=== PATIENT | female | born 1945 | race Caucasian/White ===

== ENCOUNTER 2022-02-08 13:01 | Outpatient (RCR) | payer OTHER, SELFPAY ==
--- NOTE | 2022-06-07 15:39 | ONC.NURNOTE ---
Reviewed with pt [facility] changes and Dr. Persaud's transition to [facility], returning to [facility] Spring 2022. Pt would like to continue care at [facility]; she is due for f/u 08/2022.
== END 2022-08-07 23:59 | disposition home or self-care (01) ==
LOC: CCIC 13:01
PROVIDERS: PCP Family Medicine; Visit Provider Internal Medicine Hematology & Oncology
DX: D05.12 Intraductal carcinoma in situ of left breast (principal); Z17.0 Estrogen receptor positive status [ER+]; Z79.810 Long term (current) use of selective estrogen receptor modulators (SERMs); M81.0 Age-related osteoporosis without current pathological fracture
CPT/HCPCS: 99212; 99214

== ENCOUNTER 2022-10-20 13:57 | Outpatient (RCR) | payer OTHER, SELFPAY | END 2023-04-18 23:59 | disposition home or self-care (01) | LOC: CCIC 13:57 | PROVIDERS: PCP Family Medicine; Visit Provider Physician Assistant | DX: D05.12 Intraductal carcinoma in situ of left breast (principal); Z17.0 Estrogen receptor positive status [ER+]; Z79.810 Long term (current) use of selective estrogen receptor modulators (SERMs); M81.0 Age-related osteoporosis without current pathological fracture; R21 Rash and other nonspecific skin eruption | CPT/HCPCS: 99212; 99214 ==

== ENCOUNTER 2022-10-31 09:15 | Outpatient (RCR) | payer OTHER, SELFPAY ==
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
== END 2023-01-19 16:35 | disposition home or self-care (01) ==
PROVIDERS: PCP Family Medicine; Visit Provider Orthopaedic Surgery
DX: M12.819 Other specific arthropathies, not elsewhere classified, unspecified shoulder (principal); Z51.89 Encounter for other specified aftercare
CPT/HCPCS: 97110; 97140; 97162

== ENCOUNTER 2023-07-24 09:50 | Outpatient (RCR) | payer OTHER, SELFPAY | END 2023-10-21 23:59 | disposition home or self-care (01) | LOC: CCIC 09:50 | PROVIDERS: PCP Family Medicine; Visit Provider Physician Assistant | DX: D05.12 Intraductal carcinoma in situ of left breast (principal); M81.0 Age-related osteoporosis without current pathological fracture; N18.4 Chronic kidney disease, stage 4 (severe); R21 Rash and other nonspecific skin eruption | CPT/HCPCS: 99212; 99214; 99215; G0463 ==

== ENCOUNTER 2023-08-15 18:44 | Emergency (ER) | payer OTHER, SELFPAY ==
[2023-08-15 19:07] VITALS: BP 130/62; PULSE 83; RESP 18; TEMP 36.8; O2SAT 98; BMI 29.2
[2023-08-15 20:30] LABS: PCR FLU A Negative PCR FLU A (Negative); PCR FLU B Negative PCR FLU B (Negative); PCR RSV Negative PCR RSV (Negative); SARS PCR* Negative SARS-CoV-2 (Negative)
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
--- NOTE | 2023-08-15 21:58 | XR_ITS ---
Patient: JANIA QUINN Facility:?[facility] RIS Patient ID:?[id number] Site Patient ID:?[id number]. Site :?[id number] Study:?XRay-Chest 2V-08/15/2023 10:42:13 PM Ordering Physician:JERRY Final Report: INDICATION: Productive cough. TECHNIQUE: Chest radiograph, 1 view. COMPARISON: None. FINDINGS: Cardiovascular/Mediastinum: Normal heart size. Mild atherosclerotic calcifications of the aortic arch. Lungs: Linear bandlike opacifications of the lung bases bilaterally, likely to represent subsegmental atelectasis and/or scarring. Compressive atelectasis of the left lung base. Increased interstitial lung markings, suggestive of mild interstitial edema. Airways: Trachea remains midline. Pleura: Small left and trace right pleural effusions. No pneumothorax. Bones: Severe degenerative changes of the bilateral glenohumeral and acromioclavicular joints. No acute osseous abnormalities. Upper abdomen: There is a small amount of air under the right hemidiaphragm, concerning for pneumoperitoneum. IMPRESSION: 1. Small pleural effusions, [id number]-qhvu-right. Mild interstitial edema. No definite focal consolidation to suggest pneumonia. 2. Small amount of air under the right hemidiaphragm, compatible with pneumoperitoneum of unknown origin. Advise follow-up CT of the abdomen and pelvis for full further evaluation. Dictated by Mannie Thornton MD @ 08/15/2023 11:00:48 PM ----- ADDENDUM ----- Findings communicated with Dr. Winchester at 23:03 on 08/15/2023. Dictated by Mannie Thornton MD @ Aug 15 2023 11:34PM Signed by:?Mannie Thornton MD @08/15/2023 11:00:48 PM (Electronic Signature)
[2023-08-15] MEDS: predniSONE 20 MG TABLET 40 MG PO (22:55)
== END 2023-08-15 23:25 | disposition home or self-care (01) ==
PROVIDERS: Emergency Provider Family Medicine; PCP Family Medicine
DX: J06.9 Acute upper respiratory infection, unspecified (principal); J90 Pleural effusion, not elsewhere classified
CPT/HCPCS: 71046; 87631; 99284; J7512

== ENCOUNTER 2023-11-13 10:32 | Emergency (ER) | payer OTHER, SELFPAY ==
--- NOTE | 2023-11-13 10:36 | CRLHL7_ITS ---
For Patients: As a result of the Cures Act, medical imaging exams and procedure reports are released immediately into your electronic medical record. You may view this report before your referring provider. If you have questions, please contact your health care provider. Indication: Fall. Technique: Two AP views of the pelvis and two views of the right hip. Comparison: None available. Findings: Osseous demineralization limits evaluation for nondisplaced fracture. No displaced fracture is seen. Mild bilateral hip osteoarthritis. No widening of the sacroiliac joints or pubic symphysis. Severe lower lumbar degenerative disc disease and facet arthropathy. Peritoneal dialysis catheter is seen in the pelvis. Impression: Osseous demineralization without displaced fracture visualized. Dictated by Becky Chairez MD @ 11/13/2023 11:29:15 AM (Electronically Signed)
--- NOTE | 2023-11-13 10:36 | CRLHL7_ITS ---
For Patients: As a result of the Century Cures Act, medical imaging exams and procedure reports are released immediately into your electronic medical record. You may view this report before your referring provider. If you have questions, please contact your health care provider. INDICATION: Fall, hit head. TECHNIQUE: CT head without contrast. COMPARISON: None. FINDINGS: CSF spaces: Within normal limits for age. Brain parenchyma and extra-axial spaces: The bill-white differentiation is normal. No sign of mass, hemorrhage, or midline shift. No extra-axial fluid collection. Cerebral atrophy. Skull base and calvarium: The visualized paranasal sinuses and mastoid air cells demonstrate no acute or significant findings. The visualized orbits are grossly unremarkable. No skull fractures. Atherosclerosis. Hyperostosis frontalis interna. Expansion and irregularity at the inferior aspect of the right maxillary sinus and right maxilla, partially included on the examination. IMPRESSION: 1. No intracranial bleed or mass effect. 2. Sclerosis and expansion of the right maxilla, partially included on the examination. This can represent a process such as fibrous dysplasia, however this is incompletely included on the examination. Suggest maxillofacial CT for further characterization. Please note that all CT scans at this facility use dose modulation, iterative reconstruction, and/or weight-based dosing when appropriate to reduce radiation dose to as low as reasonably achievable. Dictated by Ariel Ayala MD @ 11/13/2023 11:20:05 AM (Electronically Signed)
[2023-11-13 10:44] VITALS: BP 180/99; PULSE 93; RESP 16; TEMP 35.8; O2SAT 97; BMI 31.8
--- NOTE | 2023-11-13 10:56 | CRLHL7_ITS ---
For Patients: As a result of the Century Cures Act, medical imaging exams and procedure reports are released immediately into your electronic medical record. You may view this report before your referring provider. If you have questions, please contact your health care provider. Indication: Fall, pain. Technique: Two view(s) of the right knee. Comparison: None available. Findings: Anatomic alignment of the right knee prosthesis. Hardware is intact. No periprosthetic lucency or fracture is seen. No large knee joint effusion. Small superior and inferior patellar enthesophytes. Osseous demineralization. Mild prepatellar soft tissue edema. Atherosclerotic arterial calcifications. Impression: Anatomic alignment of the right knee prosthesis. No evidence of hardware complication or periprosthetic fracture. Dictated by Becky Chairez MD @ 11/13/2023 11:27:13 AM (Electronically Signed)
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
--- OUTSIDE RECORDS SUMMARY | 2023-11-13 11:15 | XMS_ITS | Clinical Summary ---
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 03/25/2019 Active cholecalciferol (Vitamin D) 1,000 unit capsuleIndications: Vitamin D deficiency Take 1 Capsule (1,000 units) by mouth once daily. 90 Capsule 3 08/09/2022 Active calcium with vitamin D3 (Os-Reggie 500+D) tablet Take 1 Tablet by mouth once daily with a meal. Active oxygen-air delivery systems (HOME OXYGEN)Indications: Incarcerated umbilical hernia Oxygen for home use. Liters per minute: 2 L/min per nasal cannula. Frequency of use: Continuous with portability.;. Length of need: 2 Months. 1 Each 06/09/2023 Active Accu-Chek Guide Glucose MeterIndications:Co ntrolled type 2 diabetes mellitus without complication, without long-term current use of insulin (HC) USE DIRECTED 1 Kit 07/06/2023 Active amLODIPine (NORVASC) 5 mg tabletIndications:H TN (hypertension) Take 2 Tablets (10 mg) by mouth once daily. 180 Tablet 1 08/02/2023 Active atorvastatin (LIPITOR) 20 mg tabletIndications:H yperlipidemia, unspecified hyperlipidemia type Take 1 Tablet (20 mg) by mouth at bedtime. 90 Tablet 3 08/02/2023 Active losartan (COZAAR) 50 mg tabletIndications:H TN (hypertension) Take 1 Tablet (50 mg) by mouth once daily. 90 Tablet 1 08/02/2023 Active potassium chloride (KLOR-CON M20) 20 mEq extended-release tablet (part/cryst)Indicat ions:Hypokalemia Take 1 Tablet (20 mEq) by mouth two times daily with meals. 180 Tablet 2 08/21/2023 Active allopurinoL (ZYLOPRIM) 300 mg tabletIndications:G out of hip, unspecified cause, unspecified chronicity, unspecified laterality TAKE 1/2 TABLET ONE TIME DAILY 45 Tablet 1 10/18/2023 Active allopurinoL (ZYLOPRIM) 300 mg tabletIndications:G out of hip, unspecified cause, unspecified chronicity, unspecified laterality TAKE 1/2 TABLET ONE TIME DAILY 45 Tablet 1 08/02/2023 Discontinue d(Reorder (E-cancel not sent)) Active Problems Problem Noted Date Diagnosed Date HTN (hypertension) 06/05/2023 Incarcerated umbilical hernia 05/03/2023 CKD (chronic kidney disease) stage 5, GFR less than 15 ml/min 02/16/2023 Hypertensive chronic kidney disease with stage 5 chronic kidney disease or end stage renal disease 02/16/2023 Ductal carcinoma in situ (DCIS) of breast 2022 Overview: left lumpectomy and xrt, no chemo Esophageal reflux 01/10/2023 Nephrotic range proteinuria 12/21/2022 Type 2 diabetes mellitus wit h stage 5 chronic kidney disease not on chronic dialysis 08/04/2022 Anemia in stage 4 chronic kidney disease 020 Ductal carcinoma in situ (DCIS) of left breast 0 11/30/2018 Controlled type 2 diabetes m ellitus without complication, without long-term current use of insulin 03/27/2018 Systolic hypertension 02/21/2014 CKD (chronic kidney disease) stage 4, GFR 15-29 ml/min 04/22/2013 Gout, unspecified 08/17/2007 Other and unspecified hyperlipidemia 08/17/2007 Other atopic dermatitis and related conditions 0 08/17/2007 Resolved Problems Problem Noted Date Diagnosed Date Resolved Date Closed nondisplaced fracture of styloid process of left radius 03/05/2021 08/04/2022 Type 2 diabetes mellitus wit h hyperglycemia, without long-term current use of insulin 08/03/2020 02/08/2021 CKD (chronic kidney disease) 04/22/2013 04/22/2013 Crohn's colitis 11/16/2011 08/04/2022 Overview: Colonoscopy 11/2011 mild inflammation repeat in 3 years Colonoscopy 03/2013 mild- moderate Crohn's colitis, worsening renal function, nephrology consult, colonoscopy in 3 years HYPERTENSION 08/17/2007 02/21/2014 Encounters Date Type Department Care Team Description 10/20/2023 Telephone [facility] [address] [place] [address] Harsha Chaudhary MD Medication Management (allopurinoL (ZYLOPRIM) 300 mg tablet) 10/18/2023 Orders Only [facility] [address] [place] [address] Harsha Chaudhary MD <No scans attached> 10/16/2023 Telephone [facility] [address] [place] [address] Harsha Chaudhary MD Refill Request (CARVEDILOL 12.5MG TAB, TORSEMIDE 20MG TAB, SEVELAMER CARB 800MG TAB) 10/13/2023 Refill [facility] [address] [place] [address] Harsha Chaudhary MD Refill Request (ALLOPURINOL 300MG TAB) 08/28/2023 Refill [facility] [address] [place] [address] Harsha Chaudhary MD Refill Request (Potassium chloride ER 10mg) 08/18/2023 Refill [facility] [address] [place] [address] Harsha Chaudhary MD Refill Request (Potassium Chloride ER 10 MEQ tablet, extended release ) 08/15/2023 Orders Only [facility] Scanner 1 scan: (1-Ord) [place], [place], 08/15/2023 from Last 3 Months Immunizations Name Administration Dates Next Due COVID-19 Vaccine Spikevax (M oderna 50mcg/0.5mL) 12YO+ [id number] Formula PF 05/03/2023 COVID-19 vaccine (Moderna 100mcg/0.5mL) PF, MDV 07/16/2020 COVID-19 vaccine (Pfizer-Bio NTech 30mcg/0.3mL) 12YO+ BIVALENT PF, MDV 08/04/2022 Hepatitis B (Adult) 08/02/2023 Influenza A (H1N1), Inactivated 04/29/2009 Influenza A (H1N1), Inactiva sarah beth (Age >=3 Years) 04/29/2009 Influenza, High-dose Inactivated 01/25/2016,02/05,01/24/2014 Influenza, IIV3 (Age 6-35 mos) 02/04/2010,2008 Influenza, IIV3 (Age >=3 years) 02/08/20 13,02/04/2010,04/29/2009,2004 Influenza, Inactivated AIIV4 (Age 65+ Years) Preserv Free 03/10/2023,02/08/2021 Influenza, Inactivated IIV3 (Age 65+ Years) Preserv Free 01/22/2019,02/20/2018,01/25/2017 Pneumococcal Conj 20-valent (Prevnar 20) 05/03/2023 Pneumococcal Poly,23-Valent (Pneumovax) 09/13/2010 Pneumococcal conj 13-Valent (Prevnar 13) 01/25/2016 Td (Age >=7 Years) 09/06/2004 Tdap 02/01/2019 Tdap, Unspecified 02/01/2019 Tuberculin (PPD) 03/22/2013 Family History Medical History Relation Name Comments Heart Disease Brother Heart Disease Father 50s. Heart Disease Mother chf Cancer-breast Sister age 55 Anesthesia Malignant Hyperthermia No Family History Blood Disease No Family History Relation Name Status Comments Brother Father Mother Sister Social History Tobacco Use Types Packs/Day Years Used Date Smoking Tobacco: Never Passive Smoke Exposure: Never Smokeless Tobacco: Never Tobacco Cessation:Counseling Given: No Alcohol Use Standard Drinks/Week Comments Yes 0 (1 standard drink = 0.6 oz pur e alcohol) 2 per year PHQ-2 Answer Date Recorded PHQ-2 TOTAL SCORE 0 05/03/2023 Social Connections Answer Date Recorded Frequency of Communication with Friends and Fami ly 0 01/10/2023 Financial Resource Strain Answer Date R ecorded Difficulty of Paying Living Expenses 3 01/10/2023 Difficulty of Paying Living Expenses Not on file 01/10/2023 Food Insecurity Answer Date Recorded Worried About Running Out of Food in the Last Ye ar 1 01/10/2023 Transportation Needs Answer Date Record ed Lack of Transportation (Medical) 1 01/10/2023 Housing Stability Answer Date Recorded Unable to Pay for Housing in the Last Year 1 01/10/2023 Sex and Gender Information Value Date Recorded Sex Assigned at Not on file Gender Identity Not on file Sexual Orientation Not on file Obstetrics History Para Term AB IAB SAB Ectopic Multiple Livin g Live Births 4 4 4 Date Outcome GA Total Labor Labor/2nd/3rd Weight Sex Type Anes PTL Gloria A1 A5 Name Clin Term Term Term Term Last Filed Vital Signs Vital Sign Reading Time Taken Comments Blood Pressure 132/70 08/02/2023 1:36 PM CDT Pulse 75 08/02/2023 1:07 PM CDT Temperature 36.4 ??C (97.5 ??F) 07/06/2023 2:14 PM CS T Respiratory Rate 14 07/06/2023 2:14 PM BUSINESS MANAGEMENT INTERN Oxygen Saturation 99% 08/02/2023 1:07 PM CDT Inhaled Oxygen Concentration - - Weight 82.7 kg (182 lb 6.4 oz) 08/02/2023 1:07 P M CDT Height 167.6 cm (5' 6) 06/22/2023 10:56 AM BUSINESS MANAGEMENT INTERN Body Mass Index 29.44 06/22/2023 10:56 AM BUSINESS MANAGEMENT INTERN Plan of Treatment Upcoming Encounters Date Type Department Care Team (Late st Contact Info) Description 11/30/2023 11:30 AM CDT Orders Only [facility] [address] [place] [address] [place], [place] 11/30/2023 11:50 AM CDT Office Visit [facility] [address] [place] [address] Harsha Chaudhary MD [address] [place] [address] Health Maintenance Due Date Last Done Comments Zoster (shingles) series for age 50+ (1 of 2) 1962 COVID-19 vaccine series (2022- season) 2023 05/03/2023, 08/04/2022, 07/20/2021, Additional history exists Influenza for age 65+ 01/07/2024 03/10/2023 , 02/08/2021, 01/22/2019, Additional history exists Medicare Wellness for age 65+ 05/03/2024, 02/08/2021, 02/20/2018, Additional history exists Depression screening for age 12+ 05/04/2024 05/04/2023, 05/03/2023, 08/05/2022, Additional history exists BMI (ht and wt on same day) for age 18+ 06/22/2024 06/22/2023, 06/01/2023, 05/30/2023, Additional history exists Tetanus booster 02/01/2029 02/01/2019, 01/07, 09/06/2004 Tdap Completed 02/01/2019, 02/01/2019 DEXA/DXA scan for age 65+ Completed 2021, 01/03/2019, 02/27/2014 Pneumococcal series for age 65+ Completed 05/03/2023, 01/25/2016, 09/13/2010 Medical Devices Implanted Type Area Railroad Firer Device Identifier Shelf Expiration Date Model / Serial / Lot [employer] Medical Flex-Neck Arc Peritoneal Dialysis Catheter Implanted:Qty: 1 on 06/05/2023 by Benjamin Wayne MD at [facility] N/A: Abdomen 09/30/2024 [id number] / / Description:[employer] Fl ex-Neck ARC Peritoneal Dialysis Catheter [employer] [id number] Implanted:Qty: 1 on 06/05/2023 by Benjamin Wayne MD at [facility] N/A: Abdomen 01/02/2025 [id number] / / [id number] Description:[employer] M[employer] 12 X12 Procedures Procedure Name Priority Date/Time Associated Diagnosis Comments SCAN-RADIOLOGY REPORT 08/15/2023 12:00 AM CDT XR DXA BONE DENSITY 2 SITES AXIAL Routine 10/18/2021 10:51 AM CDT Osteoporosis from Last 3 Months or Most Recently Relevant to Health Maintenance Results * SCAN-RADIOLOGY REPORT (08/15/2023 12:00 AM CDT) Anatomical Region Laterality Modality Other Scanner OTHER * (ABNORMAL) XR DXA BONE DENSITY 2 SITES AXIAL (10/18/2021 10:51 AM CDT) Anatomical Region Laterality Modality Spine, HIPS, HIPL, HIPR Other Impressions 10/22/2021 4:56 PM CDT Osteoporosis. RECOMMENDATIONS: The National Osteoporosis Foundation recommends pharmacologic treatment for patients with T-scores of -2.5 or less, patients with prior history of fragility fractures, or patients with 10-year probability of greater than 3% at hips or greater than 20% of suffering major osteoporotic fractures. Recommend continued optimization of calcium and vitamin D intake through dietary means and/or supplementation and regular exercise. Consider pharmacologic therapy for osteoporosis. Follow-up bone density reading in 2 years if therapy initiated to assess therapeutic efficacy. Sylvia Barajas PA-C Narrative 10/22/2021 4:56 PM CDT For Patients: Results are automatically released to your [facility] ([employer]) account once available, in compliance with federal regulations. This means that you may see your results before your provider has had a chance to review them. Please allow 2-3 business days for your provider to comment on the results. XR DXA Bone Mineral Density (BMD) EXAM LOCATION: [facility] [address] [address] PATIENT NAME: Angelina Gasca DATE OF : 1945 EXAM DATE: 10/18/2021 REQUESTING PROVIDER: Harsha Chaudhary MD GENDER AT : female HEIGHT: 5' 4.33 (08/31/2021) WEIGHT: ??195 lb (08/31/2021) MENOPAUSAL STATUS: Postmenopausal RACE/ETHNICITY: White RISK FACTORS: Aromatase Inhibitors (Arimidex, etc.), Smoking (prior) and White Race CURRENT MEDICATION FOR BONE LOSS: NONE INDICATION: Osteoporosis, unspecified osteoporosis type, unspecified pathological fracture presence ?? COMPARISON DATE(S): 2013 DXA scans are compared to prior studies for a patient only when the two (or more) studies were performed on the same scanner. It is not possible to compare data generated on one scanner to data from another because there are not standards in DXA equipment. This applies even if the two scanners are made by the same etl programmer. PROCEDURE: Dual-energy x-ray absorptiometry performed with routine technique. Reporting is completed in the form of a T-score. The T-score represents the standard deviation from peak bone mass based on young healthy adult. A Z-score is used for diagnosis in premenopausal women, and for men under the age of 50. FINDINGS: RESULT LUMBAR SPINE L1 - L3 ??BMD: 1.319 g/cm2 T-Score: + 1.1 Z-Score: + 2.1 Change from prior: ??None RESULTS FEMUR Left femoral neck BMD: 0.662 g/cm2 T-Score: - 2.7 Z-Score: - 1.1 Change from prior: ??+20.1% since 2013 Right femoral neck BMD: 0.611 g/cm2 T-Score: - 3.1 Z-Score: - 1.5 Change from prior: -5.6% since 2013 Left hip BMD: 0.625 g/cm2 T-Score: - 3.0 Z-Score: - 1.7 Change from prior: -6.4% since 2013 Right hip BMD: 0.652 g/cm2 T-Score: - 2.8 Z-Score: - 1.5 Change from prior: -13.4% since 2013 WHO criteria: Normal: T-score at or above -1 SD Osteopenia: T-score between -1.1 and -2.4 SD Osteoporosis: T-score at or below -2.5 SD ?? Harsha Chaudhary MD DEXA from Last 3 Months or Most Recently Relevant to Health Maintenance Advance Directives * Full Code (Latest Code Status on File) Date Activated Date Inactivated Comments 06/06/2023 8:04 AM 06/09/2023 7:13 PM Question Answer Comments Code Status Discussion: Reviewed Preferences * Full Code Date Activated Date Inactivated Comments 06/05/2023 6:05 AM 06/06/2023 8:03 AM Question Answer Comments Code Status Discussion: Unable to Assess Preferences, Provider to review later Care Teams Steam Power Plant Operator Relationship Specialty Start Date End Date Harsha Chaudhary MD [address] [place] [address] PCP - General Family Practice 07/15/20 Donnell Ridley MD [address] [place] [address] Gastroenterology 11/22/12 Antelmo Ward MD [address] [place] [address] Internal Medicine Internal Medicine 01/24/14
--- OUTSIDE RECORDS SUMMARY | 2023-11-13 11:15 | XMS_ITS | Clinical Summary ---
Author Organization [facility] [place] Address [address] [place] [address] Phone Care Team Providers Care Footwear Stitcher Name Role Phone Harsha Chaudhary MD Primary Care Provider [phone] Allergies Active Allergy Reactions Criticality Noted Date Comments Lisinopril Other (see comments) 04/29/2009 intolerance Medications Medication Sig Dispensed Refills Start Date End Date Status allopurinol (ZYLOPRIM) 300 MG tablet Take 0.5 tablets by mouth in the morning. 12/28/2022 Active atorvastatin (LIPITOR) 20 MG tablet Take 20 mg by mouth in the morning. 09/20/2022 Active losartan (COZAAR) 50 MG tablet Take 50 mg by mouth in the morning. 12/28/2022 Active tamoxifen (NOLVADEX) 20 MG chemo tablet Take 1 tablet by mouth 1 (one) time each day 03/25/2019 Active amLODIPine (NORVASC) 5 MG tablet Take 2 tablets (10 mg total) by mouth in the morning. 05/18/2023 Active calcium citrate (CALCITRATE) 950 (200 Ca) MG tablet Take 950 mg by mouth 1 (one) time each day Active aspirin 81 MG chewable tablet Chew 81 mg 1 (one) time each day Active simvastatin (ZOCOR) 20 MG tablet Take 20 mg by mouth every night Active Torsemide 40 MG tablet Take 40 mg by mouth 1 (one) time each day 90 tablet 3 07/13/2023 Active carvedilol (Coreg) 12.5 MG tablet Take 1 tablet (12.5 mg total) by mouth in the morning and 1 tablet (12.5 mg total) in the evening. Take with meals. 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 02/16/2023 04/19/2023 Esophageal reflux 01/10/2023 05/18/2023 Nephrotic range proteinuria 12/21/202205/08 Anemia in chronic kidney disease 03/12/2020 04/19/2023 Intraductal carcinoma in situ of left breast 05/18/2023 Overview: left lumpectomy and xrt, no chemo Type 2 diabetes mellitus wit h diabetic chronic kidney disease 03/27/2018 04/19/2023 Stage 5 chronic kidney disease 04/22/2013 1 06/20/2022 Gout 08/17/2007 05/18/2023 Encounters Date Type Department Care Team Description 11/01/2023 [facility] [address] [place] [address], [place] [address] Davide Deutsch MD 10/18/2023 Orders Only [facility] [address] [place] [address] Davide Deutsch MD 09/18/2023 Treatment [facility] [address] [place] [address] Davide Deutsch MD 09/12/2023 Orders Only [facility] [address] [place] [address] Davide Deutsch MD 08/25/2023 Orders Only [facility] [address] [place] [address] Davide Deutsch MD 08/25/2023 Treatment [facility] [address] [place] [address] Davide Deutsch MD from Last 3 Months Immunizations Name Administration Dates Next Due H1N1 All Forms 04/29/2009 H1N1 Inj 04/29/2009 Influenza (IM) Preservative Free 02/04/2010,04/08 Influenza Split High Dose Pr eservative Free IM 01/25/2016,02/19/2015,01/24/2014 Influenza Vaccine, Quadrival ent, Adjuvanted 03/10/2023,02/08/2021 Influenza, Trivalent, Adjuvanted 01/22/2019,02/05,01/25/2017 Influenza, Unspecified 02/07/2013,2009,04/29/2009,04/08 Moderna SARS-COV-2 07/16/2020 Moderna Sars-cov-2 (Covid-19 ) Vaccine, Mrna, Ki Protein 05/03/2023 PPD Test 03/22/2013 [employer] SARS-CoV-2 Bivalent 3 0 mcg/0.3 mL 08/04/2022 Pneumococcal Conjugate 13-Valent 01/25/2016 Pneumococcal Polysaccharide 09/13/2010 Pneumococcal, Unspecified 05/03/2023 Td 09/06/2004 Tdap 02/01/2019 Family History Relation Status Comments Brother Alive Father Mother Sister Alive Social History Tobacco Use Types Packs/Day Years Used Date Smoking Tobacco: Never Smokeless Tobacco: Never Tobacco Cessation:Counseling Given: Not Answered Alcohol Use Standard Drinks/Week Comments Never 0 (1 standard drink = 0.6 oz pur e alcohol) Sex and Gender Information Value Date Recorded Sex Assigned at Not on file Gender Identity Not on file Sexual Orientation Not on file Last Filed Vital Signs Vital Sign Reading Time Taken Comments Blood Pressure 160/70 07/13/2023 10:24 AM CANNERY WORKER Pulse 59 07/13/2023 10:24 AM CANNERY WORKER Temperature - - Respiratory Rate - - Oxygen Saturation 98% 07/13/2023 10:24 AM CANNERY WORKER Inhaled Oxygen Concentration - - Weight 83.5 kg (184 lb) 07/13/2023 10:24 AM CANNERY WORKER Height 167.6 cm (5' 6) 07/13/2023 10:24 AM CANNERY WORKER Body Mass Index 29.7 07/13/2023 10:24 AM CANNERY WORKER Plan of Treatment Health Maintenance Due Date Last Done Comments Hepatitis B Vaccine (1 of 5 - Risk Dialysis 4-dose series) 1965 Diabetes: Ophthalmology Exam 04/12/2023 Diabetes: Pedal Pulse Checked 04/12/2023 Diabetes: Sensory Foot Exam 04/12/2023 Diabetes: Visual Foot Exam 04/12/2023 Diabetes: Hemoglobin A1C 08/14/2023 05/15/2023 Influenza Vaccine (#1) 2024 , 02/08/2021, 01/22/2019, Additional history exists Pneumococcal Vaccine: 65+ Years Completed 05/03/2023, 01/25/2016, 09/13/2010 Procedures Procedure Name Priority Date/Time Associated Diagnosis Comments PD ADEQUACY Routine 10/18/2023 PD ADEQUACY Routine 10/18/2023 PATIENT INFORMATION Routine 10/18/2023 PATIENT INFORMATION Routine 10/18/2023 PATIENT INFORMATION Routine 10/18/2023 URINE CLEARANCE Routine 10/18/2023 SPECIAL CHEMISTRY Routine 10/18/2023 CHEMISTRY Routine 10/18/2023 HEMATOLOGY Routine 10/18/2023 IMMUNO CHEMISTRY Routine 10/18/2023 CHEMISTRY Routine 10/18/2023 PDF CHEMISTRY Routine 10/18/2023 P.E.T. CREATININE, PDF Routine 09/12/2023 P.E.T. GLUCOSE, PDF Routine 09/12/2023 P.E.T. INTERPRETATION Routine 09/12/2023 PDF CHEMISTRY Routine 09/12/2023 PD ADEQUACY Routine 09/12/2023 PATIENT INFORMATION Routine 09/12/2023 HEMATOLOGY Routine 09/12/2023 IMMUNO CHEMISTRY Routine 09/12/2023 CHEMISTRY Routine 09/12/2023 P.E.T. CREATININE, PDF Routine 09/12/2023 P.E.T. GLUCOSE, PDF Routine 09/12/2023 P.E.T. INTERPRETATION Routine 09/12/2023 TRACE ELEMENTS Routine 09/12/2023 P.E.T. CREATININE, PDF Routine 09/12/2023 P.E.T. GLUCOSE, PDF Routine 09/12/2023 P.E.T. INTERPRETATION Routine 09/12/2023 URINE CLEARANCE Routine 09/12/2023 PD ADEQUACY Routine 09/12/2023 SPECIAL CHEMISTRY Routine 09/12/2023 CHEMISTRY Routine 09/12/2023 PATIENT INFORMATION Routine 09/12/2023 PATIENT INFORMATION Routine 09/12/2023 HEMATOLOGY Routine 08/25/2023 from Last 3 Months Results * (ABNORMAL) SPECIAL CHEMISTRY (10/18/2023) Only the most recent of2 resultswithin the time period is included. Vitamin D, 25-OH, Total 25.6(L) 30.0 - 100.0 ng/mL [facility] Comment: Please Note: ??Effective May 16, 2021, the methodology for this test has changed to the [employer]ELL[employer] method 10/18/2023 10/19/2023 4:0 0 PM CDT Narrative Resulting Agency Comment Specimen source: Serum Davide Deutsch MD LAB BLOOD BANK TEST ORDERABLES Performing Organization Address City/[facility] Co de Phone Number [facility] See order comments or contact performing lab Unknown, [place] * (ABNORMAL) URINE CLEARANCE (10/18/2023) Only the most recent of2 resultswithin the time period is included. Urea Nitrogen, Urine Timed 108 mg/dL [facility] Creatinine, Urine Timed 77.6 mg/dL [facility] Urea Nitrogen, Urine 24 Hr 0.4(L) 12.0 - 20.0 g/24 hr [facility] Urea Clear, Urine Norm 1.1(L) 64.0 - 99.0 mL/min [facility] Urea Clearance, Urine 1.2(L) 64.0 - 99.0 mL/min [facility] Urea Clear, Urine Norm Wkly 12 L/wk [facility] Creatinine, 24H Ur 0.3(L) 0.5 - 1.6 g/24 hr [facility] Creatinine Clear, Urine 5.4 mL/min [facility] Creat Clear, Urine Norm 4.9(L) 77.0 - 94.0 mL/min [facility] Creat Clear, Urine Wkly 54.4 L/wk [facility] 10/18/2023 10/19/2023 2:5 9 PM CDT Narrative Resulting Agency Comment Specimen source: Urine Davide Deutsch MD LAB URINE ORDERABLES Performing Organization Address City/[facility]/ZIP Co de Phone Number [facility] See order comments or contact performing lab Unknown, [place] * PDF CHEMISTRY (10/18/2023) Only the most recent of2 resultswithin the time period is included. Urea Nitrogen, PDF Timed 17 mg/dL [facility] Comment: A reference range for this assay has not been established for body fluids. If blood results are available for this analyte, results may be interpreted in comparison to those results. Creatinine, PDF Timed Uncor 2.4 mg/dL [facility] Comment: A reference range for this assay has not been established for body fluids. If blood results are available for this analyte, results may be interpreted in comparison to those results. Creatinine, PDF Timed Cor 2.2 mg/dL [facility] Comment: Creatinine values have been corrected for glucose interference. [facility] glucose correction factor for creatinine is 0.0002. Glucose, PDF Timed 808 mg/dL [facility] Comment: A reference range for this assay has not been established for body fluids. If blood results are available for this analyte, results may be interpreted in comparison to those results. Urea Nitrogen, PDF 24 Hr 1,796.1 mg/24 hr [facility] Urea Clearance, PD Fluid 5.7 mL/min [facility] Urea Clearance, PDF Norm 5.1 mL/min [facility] Urea Clear, Tot Norm Wkly 69 L/wk [facility] Urea Clear, PDF Norm Wkly 57 L/wk [facility] Creatinine, PDF 24 Hr 232.4 mg/24 hr [facility] Creatinine Clear, PDF 4.6 mL/min [facility] Creatinine Clear, PDF Norm 4.2 mL/min [facility] Creat Clear, PDF Norm Wkly 46 L/wk [facility] Creat Clear, Tot Wkly 100 L/wk [facility] 10/18/2023 10/19/2023 1:3 8 PM CDT Narrative Resulting Agency Comment Specimen source: PD Fluid Davide Deutsch MD LAB BODY FLUIDS AND STOOLS ORDERABLES [facility] See order comments or contact performing lab Unknown, [place] * PD ADEQUACY (10/18/2023) Only the most recent of4 resultswithin the time period is included. Kt/V, Residual 0.32 [facility] Creat Clear, Urine Nor Wkly 49 L/wk [facility] 10/18/2023 10/19/2023 2:5 9 PM CDT Narrative [facility] - 10/20/2023 Unless otherwise specified, test(s) performed at: [facility], [address] [place] [address], [place] [address] FIELD CAPTAIN: Porfirio Mahoney M.D., Ph.D For any questions, please call customer service at FREQUENCY:OTHER Resulting Agency Comment Specimen source: Urine Davide Deutsch MD LAB BODY FLUIDS AND STOOLS ORDERABLES Performing Organization Address [facility] Co de Phone Number [facility] See order comments or contact performing lab Unknown, [place] * IMMUNO CHEMISTRY (10/18/2023) Only the most recent of2 resultswithin the time period is included. Pathologist [facility] Hep B Surface Ag Negative Negative [facility] 10/18/2023 10/19/2023 1:3 8 PM CDT Narrative Resulting Agency Comment Specimen source: Plasma Davide Deutsch MD LAB BLOOD ORDERABLES Performing Organization Address [facility] Co de Phone Number [facility] See order comments or contact performing lab Unknown, [place] * PATIENT INFORMATION (10/18/2023) Only the most recent of6 resultswithin the time period is included. Pathologist [facility] Urea Volume Distribution ([place]) 37.7 L [facility] 10/18/2023 10/19/2023 1:3 8 PM CDT Narrative [facility] - 10/20/2023 Unless otherwise specified, test(s) performed at: [facility], [address] [place] [address], [place] [address] FIELD CAPTAIN: Porfirio Mahoney M.D., Ph.D For any questions, please call customer service at FREQUENCY:OTHER Resulting Agency Comment Specimen source: PD Fluid Davide Deutsch MD LAB BLOOD ORDERABLES Performing Organization Address [facility]/ZIP Co de Phone Number [facility] See order comments or contact performing lab Unknown, [place] * (ABNORMAL) HEMATOLOGY (10/18/2023) Only the most recent of3 resultswithin the time period is included. Pathologist [facility] WBC 6.36 4.80 - 10.80 1000/mcL [facility] RBC 3.47(L) 4.20 - 5.40 mill/mcL [facility] Hematocrit 32.5(L) 37.0 - 47.0 % [facility] MCV 94 80 - 100 fl [facility] MCH 30.9 27.0 - 31.0 pg [facility] MCHC 33.0 30.0 - 36.0 g/dL [facility] RDW 14.4 11.5 - 14.5 % [facility] Hemoglobin 10.7(L) 12.0 - 16.0 g/dL [facility] Hemoglobin x 3 32.1(L) 36.0 - 48.0 % [facility] Platelets 211 130 - 400 1000/mcL [facility] 10/18/2023 10/19/2023 1:2 3 PM CDT Narrative [facility] - 10/19/2023 Unless otherwise specified, test(s) performed at: [facility], [address] [place] [address], [place] [address] FIELD CAPTAIN: Porfirio Mahoney M.D., Ph.D For any questions, please call customer service at FREQUENCY:MONTHLY Resulting Agency Comment Specimen source: Blood Davide Deutsch MD LAB BLOOD ORDERABLES [facility] See order comments or contact performing lab Unknown, [place] * (ABNORMAL) [facility] (10/18/2023) Only the most recent of4 resultswithin the time period is included. BUN 22(H) 6 - 19 mg/dL [facility] Creatinine 3.49(H) 0.60 - 1.30 mg/dL [facility] BUN/Creatinine Ratio 6.3(L) 10.0 - 20.0 [facility] Sodium 134(L) 136 - 145 mEq/L [facility] Potassium 4.4 3.5 - 5.1 mEq/L [facility] Chloride 98 96 - 108 mEq/L [facility] Bicarbonate (CO2) 30 20 - 31 mEq/L [facility] Calcium 8.2(L) 8.7 - 10.4 mg/dL [facility] Comment: Please note change in reference range. Corrected Calcium 9.4 8.7 - 10.4 mg/dL [facility] Comment: Corrected Calcium is not equivalent to measured Ionized Calcium. Phosphorus 3.2 2.6 - 4.5 mg/dL [facility] Calcium Phosphorus Product 26 0 - 54 [facility] Calcium Phosporus Product, Cor 30 0 - 54 [facility] Alkaline Phosphatase 68 35 - 104 U/L [facility] Albumin 2.5(L) 3.5 - 5.2 g/dL [facility] Glucose 114(H) 70 - 100 mg/dL [facility] Magnesium 1.4(L) 1.6 - 2.6 mg/dL [facility] Comment: Custom Exception Ferritin 416(H) 10 - 291 ng/mL [facility] Iron 62 30 - 160 mcg/dL [facility] UIBC 112(L) 155 - 355 mcg/dL [facility] TIBC 174(L) 185 - 515 mcg/dL [facility] Iron Saturation (TSat) 36 20 - 55 % [facility] 10/18/2023 10/19/2023 4:0 0 PM CDT Narrative [facility] - 10/19/2023 Unless otherwise specified, test(s) performed at: [facility], [address] [place] [address], [place] [address] FIELD CAPTAIN: Porfirio Mahoney M.D., Ph.D For any questions, please call customer service at FREQUENCY:MONTHLY Resulting Agency Comment Specimen source: Serum Davide Deutsch MD LAB BLOOD ORDERABLES [facility] See order comments or contact performing lab Unknown, [place] * P.E.T. INTERPRETATION (09/12/2023) Only the most recent of3 resultswithin the time period is included. D/P Ratio PET 2 Hr 0.36 [facility] D/D0 Ratio PET 2 Hr 0.64 [facility] 09/12/2023 09/14/2023 6:0 0 PM CDT Narrative [facility] - 09/14/2023 Unless otherwise specified, test(s) performed at: [facility], [address] [place] [address], [place] [address] FIELD CAPTAIN: Porfirio Mahoney M.D., Ph.D For any questions, please call customer service at FREQUENCY:MONTHLY Resulting Agency Comment Specimen source: PD Fluid Davide Deutsch MD LAB BLOOD ORDERABLES Performing Organization Address [facility] Co de Phone Number [facility] See order comments or contact performing lab Unknown, [place] * P.E.T. GLUCOSE, PDF (09/12/2023) Only the most recent of3 resultswithin the time period is included. Glucose, PDF 2 Hr 1,322 mg/dL [facility] Comment: A reference range for this assay has not been established for body fluids. If blood results are available for this analyte, results may be interpreted in comparison to those results. 09/12/2023 09/14/2023 6:0 0 PM CDT Narrative Resulting Agency Comment Specimen source: PD Fluid Davide Deutsch MD LAB BLOOD ORDERABLES Performing Organization Address [facility] de Phone Number [facility] See order comments or contact performing lab Unknown, [place] * P.E.T. CREATININE, PDF (09/12/2023) Only the most recent of3 resultswithin the time period is included. Creatinine, PDF 2 Hr Cor 2.3 mg/dL [facility] Creatinine, PDF 2 Hr Uncor 2.6 mg/dL [facility] Comment: A reference range for this assay has not been established for body fluids. If blood results are available for this analyte, results may be interpreted in comparison to those results. 09/12/2023 09/14/2023 6:0 0 PM CDT Narrative Resulting Agency Comment Specimen source: PD Fluid Davide Deutsch MD LAB BLOOD ORDERABLES Performing Organization Address City/[facility] Co de Phone Number [facility] See order comments or contact performing lab Unknown, [place] * TRACE ELEMENTS (09/12/2023) Aluminum <5 0 - 10 mcg/L [facility] Comment: This test was developed and its performance characteristics determined by [facility]. It has not been cleared or approved by the FDA. The laboratory is regulated under CLIA as qualified to perform high complexity testing. This test is used for clinical purposes. It should not be regarded as investigational or for research. 09/12/2023 09/14/2023 8:5 3 AM CDT Narrative [facility] - 09/14/2023 Unless otherwise specified, test(s) performed at: [facility], [address] [place] [address], [place] [address] FIELD CAPTAIN: Porfirio Mahoney M.D., Ph.D For any questions, please call customer service at FREQUENCY:MONTHLY Resulting Agency Comment Specimen source: Serum Davide Deutsch MD LAB BLOOD ORDERABLES [facility] See order comments or contact performing lab Unknown, [place] from Last 3 Months Care Teams Footwear Stitcher Relationship Specialty Start Date End Date Harsha Chaudhary MD [address] [place] [address] PCP - General Family Medicine 12/22/22
--- OUTSIDE RECORDS SUMMARY | 2023-11-13 11:15 | XMS_ITS | Encounter Summary ---
Author Organization [facility] Address [address] [place] [address] Care Team Providers Care Sawmill Moulder Operator Name Role Phone Harsha Chaudhary MD Primary Care Provider [phone] Encounter Details Date Type Department Care Team (Late st Contact Info) Description 11/01/2023 Treatment [facility] [address] [place] [address] Davide Deutsch MD [address] [place] [address] Social History Tobacco Use Types Packs/Day Years Used Date Smoking Tobacco: Never Smokeless Tobacco: Never Alcohol Use Standard Drinks/Week Comments Never 0 (1 standard drink = 0.6 oz pur e alcohol) Sex and Gender Information Value Date Recorded Sex Assigned at Not on file Gender Identity Not on file Sexual Orientation Not on file documented as of this encounter Miscellaneous Notes * Dialysis Note - Davide Deutsch MD - 11/01/2023 1:18 PM CDT Date: Nov 01, 2023 Patient Name: Angelina Gasca : 1945 Chart #: [id number] Sex: F This patient was personally seen for a complete visit as part of routine monthly dialysis care. A review of the dialysis treatment, blood pressure, estimated dry weight, and recent lab values was made. These were discussed with the patient and staff as necessary. CART PUSHER: Davide Deutsch MD LOCATION: [phone] SCHEDULE: No Routine Schedule Subjective 6/26/24: She is doing well on cycler. She is adequate. Last fill going well, ok having fluid in during day. UF volumes reviewed, variable but overall doing well and stable weight for the most part. Weight is up today, she is unsure why, no major change in diet. Her albumin dropped significantly, but her appetite has now improved significantly and she is eating better. She is not eating protein inbreakfast or lunch meals, however. Review of Systems None reported. 08/24: She is on CAPD right now, will start CCPD training September 11 as she would like to do cycler. She is doing 3 CAPD sessions per day, dwelling 3hrs, UF is about zero to 300 mL each time. She is onlytaking torsemide 20mg as she urinates a lot if she takes 40mg. But she is 9 lbs above dry weight and has 1-2+ edema in legs. PD site excellent. She has no CP or SOB. All fluid is clear. Exam Respiratory - Clear to auscultation bilaterally. nl effort Cardiovascular - Regular rate. Regular rhythm. Gastrointestinal - Normal bowel sounds, soft, non-tender. Edema - 1+ leg edema. b/l PD catheter exit site - PD incision clean and without erythema Medication List Medication Sig Start Date allopurinol 300 mg tablet Take 1/2 tablet by mouth every morning calcitriol 0.25 mcg capsule Take 1 capsule by mouth once a day as directed 09/18/2023 calcium citrate 200 mg (950 mg) tablet Take 1 tablet by mouth once a day Coreg (carvedilol) 12.5 mg tablet Take 1 tablet by mouth twice a day losartan 50 mg tablet Take 1 tablet by mouth every morning RenaPlex-D (vit b,o-br-ulmr-selen-vit d3-e) 800 mcg-12.5 mg-2,000 unit tablet Take 1 tablet by mouth once a day 09/18/2023 Renvela (sevelamer carbonate) 800 mg tablet Take 1 tablet by mouth three times a day. with breakfast, lunch, and dinner for high phosphorus. 07/19/2023 simvastatin 20 mg tablet Take 1 tablet by mouth once a day Soaanz (torsemide) 40 mg tablet Take 40 mg by mouth once a day tamoxifen 20 mg tablet Take 1 tablet by mouth once a day Allergy List Allergen Reaction Reaction Severity Onset Date LISINOPRIL Unknown~Unknown Medications reviewed and no changes were made. Treatment and Adequacy Assessment BUN mg/dL 22 (10/18/23) 37 (09/12/23) 65 (08/11/23) CREATININE (MG/DL) IN SER/PLAS mg/dL 3.49 (10/18/23) 6.32 (09/12/23) 4.86 (08/11/23) KT/V, PERITONEAL L/wk 1.51 (10/18/23) 1.42 (09/12/23) KT/V, RESIDUAL L/wk 0.32 (10/18/23) 0.16 (09/12/23) Kt/V is adequate. PET low average transport for glucose, average for Cr, error with solute transport status unfortunately Cycler with 4 exchanges of 2.5L and last fill of 2.2L. Using all 2.5% at this time. Peritoneal Dialysis Access Assessment Placed on: May 2023 Surgeon - Matilde Mosley She had hernia repair and lap-placement of PD catheter at same time with 6 weeks healing time before PD. Healed nicely now Anemia Assessment HEMOGLOBIN (G/DL) IN BLOOD g/dL 10.7 (10/18/23) 10.6 (09/12/23) 9.0 (08/25/23) PLATELETS 1000/mcL 211 (10/18/23) 202 (09/12/23) 171 (08/25/23) WBC (BLOOD) 1000/mcL 6.36 (10/18/23) 5.96 (09/12/23) 8.34 (08/25/23) FERRITIN ng/mL 416 (10/18/23) 341 (09/12/23) 402 (07/17/23) TRANSFERRIN SAT% % 36 (10/18/23) 20 (09/12/23) 15 (08/11/23) 23 (07/17/23) Hemoglobin is at goal. Iron Saturation is at goal. Ferritin is at goal. Will adjust DAGOBERTO and intravenous iron. Nutritional and Metabolic Assessment ALBUMIN (G/DL) g/dL 2.5 (10/18/23) 3.1 (09/12/23) 3.6 (08/11/23) BICARBONATE (CO2) mEq/L 30 (10/18/23) 30 (09/12/23) 23 (08/11/23) POTASSIUM (MMOL/L) IN SER/PLAS mEq/L 4.4 (10/18/23) 4.7 (09/12/23) 5.0 (08/11/23) Sodium mEq/L 134 (10/18/23) 135 (09/12/23) 143 (08/11/23) 25 OH VITAMIN D ng/mL 25.6 (10/18/23) 27.5 (09/12/23) 29.5 (07/17/23) Albumin is below goal. Encourage high biological value protein intake. Oral nutritional supplement program. Potassium is at goal. On supplement. Discussed in detail need for high protein diet, protein with every meal, RD also meeting with her today to discuss high protein diet. Will trend. Bone and Mineral Metabolism Assessment CALCIUM mg/dL 8.2 (10/18/23) 7.7 (09/12/23) 9.0 (08/11/23) CALCIUM (MG/DL) CORRECTED FOR ALBUMIN IN SER/PLAS mg/dL 9.4 (10/18/23) 8.4 (09/12/23) 9.3 (08/11/23) CALCIUM PHOSPHORUS PRODUCT, COR 30 (10/18/23) 41 (09/12/23) 44 (08/11/23) PHOSPHATE (MG/DL) IN SER/PLAS mg/dL 3.2 (10/18/23) 4.9 (09/12/23) 4.7 (08/11/23) IPTH pg/mL 65 (10/18/23) 592 (09/12/23) 308 (07/17/23) Corrected calcium is at goal. Phosphorus is at goal. Intact PTH is below goal. Renvela to continue Hold calcitriol Cardiovascular Assessment Blood pressure reviewed and is acceptable. Continue same cardiovascular medications. Estimated dry weight is appropriate. Now euvolemic. Transplant Status Patient is not a candidate. Age and co-morbid conditions Resuscitation Status Additional Comments: Doing well on CCPD Continue current prescription If weight rises further, may need occasional 4.25% but has not yet and most days weight at goal Increase protein in diet, continue protein supplement. Her appetite has now improved Davide Duetsch MD [ Signed And locked electronically On 11/01/2023 at 01:22:54 PM ] Transcribed: Davide Deutsch ( 11/01/2023 ) documented in this encounter Plan of Treatment Not on file documented as of this encounter Visit Diagnoses Not on filedocumented in this encounter Care Teams Sawmill Moulder Operator Relationship Specialty Start Date End Date Harsha Chaudhary MD [address] [place] [address] PCP - General Family Medicine 12/22/22 documented as of this encounter
--- OUTSIDE RECORDS SUMMARY | 2023-11-13 11:15 | XMS_ITS | Encounter Summary ---
Author Organization [facility] Address [address] [place] [address] Care Team Providers Care Pizza [employer] Team Member Name Role Phone Harsha Chaudhary MD Primary Care Provider [phone] Encounter Details Date Type Department Care Team (Late st Contact Info) Description 10/18/2023 Orders Only [facility] [address] [place] [address] Davide Deutsch MD [address] [place] [address] Social History Tobacco Use Types Packs/Day Years Used Date Smoking Tobacco: Never Smokeless Tobacco: Never Alcohol Use Standard Drinks/Week Comments Never 0 (1 standard drink = 0.6 oz pur e alcohol) Sex and Gender Information Value Date Recorded Sex Assigned at Not on file Gender Identity Not on file Sexual Orientation Not on file documented as of this encounter Plan of Treatment Not on file documented as of this encounter Procedures Procedure Name Priority Date/Time Associated Diagnosis Comments SPECIAL CHEMISTRY Routine 10/18/2023 URINE CLEARANCE Routine 10/18/2023 PDF CHEMISTRY Routine 10/18/2023 PD ADEQUACY Routine 10/18/2023 PD ADEQUACY Routine 10/18/2023 IMMUNO CHEMISTRY Routine 10/18/2023 PATIENT INFORMATION Routine 10/18/2023 PATIENT INFORMATION Routine 10/18/2023 PATIENT INFORMATION Routine 10/18/2023 HEMATOLOGY Routine 10/18/2023 CHEMISTRY Routine 10/18/2023 CHEMISTRY Routine 10/18/2023 documented in this encounter Results * PD ADEQUACY (10/18/2023) Kt/V, Residual 0.32 [facility] Creat Clear, Urine Nor Wkly 49 L/wk [facility] 10/18/2023 10/19/2023 2:5 9 PM CDT Narrative [facility] - 10/20/2023 Unless otherwise specified, test(s) performed at: [facility], [address] [place] [address], [place] [address] MANAGER OF [employer] SERVICES: Porfirio Mahoney M.D., Ph.D For any questions, please call customer service at FREQUENCY:OTHER Resulting Agency Comment Specimen source: Urine Davide Deutsch MD LAB BODY FLUIDS AND STOOLS ORDERABLES [facility] See order comments or contact performing lab Unknown, [place] * PD ADEQUACY (10/18/2023) Kt/V, Total 1.83 [facility] Comment: KDOQI Guidelines recommend weekly Kt/V of >=1.7 for adults. Kt/V, Peritoneal 1.51 [facility] Creat Clear, Tot Norm Wkly 91 L/wk [facility] Creat Clear, PDF Norm Wkly 42 L/wk [facility] PNA, Normalized 0.49 g/kg/day [facility] PNA 32 g/day [facility] 10/18/2023 10/19/2023 1:3 8 PM CDT Narrative Resulting Agency Comment Specimen source: PD Fluid Davide Deutsch MD LAB BODY FLUIDS AND STOOLS ORDERABLES Performing Organization Address [facility] de Phone Number [facility] See order comments or contact performing lab Unknown, [place] * PATIENT INFORMATION (10/18/2023) Pathologist [facility] Urea Volume Distribution (Carmela) 37.7 L [facility] 10/18/2023 10/19/2023 1:3 8 PM CDT Narrative [facility] - 10/20/2023 Unless otherwise specified, test(s) performed at: [facility], [address] [place] [address], [place] [address] MANAGER OF [employer] SERVICES: Porfirio Mahoney M.D., Ph.D For any questions, please call customer service at FREQUENCY:OTHER Resulting Agency Comment Specimen source: PD Fluid Davide Deutsch MD LAB BLOOD ORDERABLES Performing Organization Address [facility] de Phone Number [facility] See order comments or contact performing lab Unknown, [place] * PATIENT INFORMATION (10/18/2023) [facility] Patient BSA 1.92 sq. M. [facility] Comment: Normalized values are calculated using the patient's actual BSA and normalized to the average BSA of 1.73m2. 10/18/2023 10/19/2023 4:0 0 PM CDT Narrative [facility] - 10/20/2023 Unless otherwise specified, test(s) performed at: [facility], [address] [place] [address], [place] [address] MANAGER OF ALL[employer] HE[employer] SERVICES: Porfirio Mahoney M.D., Ph.D For any questions, please call customer service at FREQUENCY:OTHER Resulting Agency Comment Specimen source: PD Fluid Davide Deutsch MD LAB BLOOD ORDERABLES Performing Organization Address [facility] de Phone Number [facility] See order comments or contact performing lab Unknown, [place] * PATIENT INFORMATION (10/18/2023) Pathologist [facility] Patient Weight 82.0 [facility] Patient Height 168.0 [facility] Drain volume, PDF 10,565 [facility] Collection Time, PDF 24.0 [facility] Urine Volume 350 [facility] Collection Interval, Ur 24.0 [facility] 10/18/2023 10/18/2023 Narrative [facility] - 10/20/2023 Unless otherwise specified, test(s) performed at: [facility], [address] [place] [address], [place] [address] MANAGER OF [employer]: Porfirio Mahoney M.D., Ph.D For any questions, please call customer service at FREQUENCY:OTHER Resulting Agency Comment Specimen source: PD Fluid Davide Deutsch MD LAB BLOOD ORDERABLES Performing Organization Address City/[facility]/ZIP Co de Phone Number [facility] See order comments or contact performing lab Unknown, [place] * (ABNORMAL) URINE CLEARANCE (10/18/2023) Urea Nitrogen, Urine Timed 108 mg/dL [facility] [...] Urine Davide Deutsch MD LAB URINE ORDERABLES [facility] See order comments or contact performing lab Unknown, [place] * (ABNORMAL) SPECIAL CHEMISTRY (10/18/2023) Pathologist [facility] Vitamin D, 25-OH, Total 25.6(L) 30.0 - 100.0 ng/mL [facility] Comment: Please Note: ??Effective May 16, 2021, the methodology for this test has changed to the SIEMENS ATELLICA method 10/18/2023 10/19/2023 4:0 0 PM CDT Narrative Resulting Agency Comment Specimen source: Serum Davide Deutsch MD LAB BLOOD BANK TEST ORDERABLES [facility] See order comments or contact performing lab Unknown, [place] * (ABNORMAL) [facility] Chemistry (10/18/2023) Pathologist [facility] BUN 22(H) 6 - 19 mg/dL [facility] [...] 10/18/2023 10/19/2023 4:0 0 PM CDT Narrative [facility] - 10/19/2023 Unless otherwise specified, test(s) performed at: [facility], [address] [place] [address], [place] [address] MANAGER OF [employer]: Porfirio Mahoney M.D., Ph.D For any questions, please call customer service at FREQUENCY:MONTHLY Resulting Agency Comment Specimen source: Serum Davide Deutsch MD LAB BLOOD ORDERABLES [facility] See order comments or contact performing lab Unknown, [place] * (ABNORMAL) HEMATOLOGY (10/18/2023) WBC 6.36 4.80 - 10.80 1000/mcL [facility] [...] 10/18/2023 10/19/2023 1:2 3 PM CDT Narrative [facility] - 10/19/2023 Unless otherwise specified, test(s) performed at: [facility], [address] [place] [address], [place] [address] MANAGER OF ALL[employer] SERVICES: Porfirio Mahoney M.D., Ph.D For any questions, please call customer service at FREQUENCY:MONTHLY Resulting Agency Comment Specimen source: Blood Davide Deutsch MD LAB BLOOD ORDERABLES [facility] See order comments or contact performing lab Unknown, [place] * IMMUNO CHEMISTRY (10/18/2023) Pathologist [facility] Hep B Surface Ag Negative Negative [facility] 10/18/2023 10/19/2023 1:3 8 PM CDT Narrative Resulting Agency Comment Specimen source: Plasma Davide Deutsch MD LAB BLOOD ORDERABLES Performing Organization Address [facility] Co de Phone Number [facility] See order comments or contact performing lab Unknown, [place] * [facility] Chemistry (10/18/2023) Pathologist [facility] PTH 65 16 - 80 pg/mL [facility] 10/18/2023 10/19/2023 1:3 8 PM CDT Narrative [facility] - 10/19/2023 Unless otherwise specified, test(s) performed at: [facility], [address] [place] [address], [place] [address] MANAGER OF [employer] SERVICES: Porfirio Mahoney M.D., Ph.D For any questions, please call customer service at FREQUENCY:MONTHLY Resulting Agency Comment Specimen source: Plasma Davide Deutsch MD LAB BLOOD ORDERABLES Performing Organization Address [facility] de Phone Number [facility] See order comments or contact performing lab Unknown, [place] * PDF CHEMISTRY (10/18/2023) [facility] Urea Nitrogen, PDF Timed 17 mg/dL [facility] [...] results. Creatinine, PDF Timed Cor 2.2 mg/dL [facility] Comment: Creatinine values have been corrected for glucose interference. [facility] glucose correction factor for creatinine is 0.0002. Glucose, PDF Timed 808 mg/dL [facility] Comment: A reference range for this [...] MD LAB BODY FLUIDS AND STOOLS ORDERABLES [facility] See order comments or contact performing lab Unknown, [place] documented in this encounter Visit Diagnoses Not on filedocumented in this encounter Care Teams [employer] Team Member Relationship Specialty Start Date End Date Harsha Chaudhary MD [address] [place] [address] PCP - General Family Medicine 12/22/22 documented as of this encounter
--- OUTSIDE RECORDS SUMMARY | 2023-11-13 11:15 | XMS_ITS | Encounter Summary ---
Author Organization [facility] Address [address] [place] [address] Care Team Providers Care Groundskeeper Porter Name Role Phone Harsha Chaudhary MD Primary Care Provider [phone] Encounter Details Date Type Department Care Team (Late st Contact Info) Description 09/18/2023 Treatment [facility] [place] [address] [place] [address] Davide Deutsch MD [address] [place] [address] Social History Tobacco Use Types [...] Dialysis Note - Davide Deutsch MD - 09/18/2023 3:18 PM CDT Date: September 18, 2023 Patient Name: Angelina Gasca : 1945 Chart #: [id number] Sex: F This patient was personally seen for a complete visit as part of routine monthly dialysis care. A review of the dialysis treatment, blood pressure, estimated dry weight, and recent lab values was made. These were discussed with the patient and staff as necessary. FUEL CELL REPAIRER: Davide Deutsch MD LOCATION: [phone] SCHEDULE: No Routine Schedule Subjective 5/13/24: Her BP is soft. Her edema is nearly resolved. She is training on cycler but still doing CAPD and this is going well. UF 800 mL on average per day with 6L of fluid in 3 exchanges with all 2.5%. Low Avg glucose transport, avg Cr transport, error with solute on PET test. Ca is lower, increased calcitriol today. She has ok appetite, discussed higher protein intake today. Review of Systems None reported. 08/24: She [...] Exam Respiratory - Clear to auscultation bilaterally. Cardiovascular - Regular rate. Regular rhythm. Gastrointestinal - Normal bowel sounds, soft, non-tender. Edema - Trace edema. much improved PD catheter exit site - PD incision site slightly pink but stable Medication List Medication Sig Start Date allopurinol 300 mg tablet Take 1/2 tablet by mouth every morning amlodipine 5 mg tablet Take 2 tablet by mouth every morning calcium citrate 200 mg (950 mg) tablet Take 1 tablet by mouth once a day Coreg (carvedilol) 12.5 mg tablet Take 1 tablet by mouth twice a day losartan 50 mg tablet Take 1 tablet by mouth every morning Renvela (sevelamer carbonate) 800 mg tablet Take 1 tablet by mouth three times a day. with breakfast, lunch, and dinner for high phosphorus. 07/19/2023 simvastatin 20 mg tablet Take 1 tablet by mouth once a day tamoxifen 20 mg tablet Take 1 tablet by mouth once a day torsemide 40 mg tablet Take 40 mg by mouth once a day Allergy List Allergen Reaction Reaction Severity Onset Date LISINOPRIL Unknown~Unknown Medications reviewed and no changes were made. Treatment and Adequacy Assessment BUN mg/dL 37 (09/12/23) 65 (08/11/23) 62 (07/17/23) CREATININE (MG/DL) IN SER/PLAS mg/dL 6.32 (09/12/23) 4.86 (08/11/23) 4.22 (07/17/23) KT/V, PERITONEAL L/wk 1.42 (09/12/23) KT/V, RESIDUAL L/wk 0.16 (09/12/23) Kt/V is not adequate. PET low average transport for glucose, average for Cr, error with solute transport status unfortunately Will start cycler with 4 exchanges of 2.5L and last fill of 2L and half/half 1.5/2.5% to start Peritoneal Dialysis Access Assessment Placed on: May 2023 Surgeon - Matilde Mosley She had hernia repair and lap-placement of PD catheter at same time with 6 weeks healing time before PD. Healed nicely now Anemia Assessment HEMOGLOBIN (G/DL) IN BLOOD g/dL 10.6 (09/12/23) 9.0 (08/25/23) 8.4 (08/11/23) PLATELETS 1000/mcL 202 (09/12/23) 171 (08/25/23) 185 (07/17/23) WBC (BLOOD) 1000/mcL 5.96 (09/12/23) 8.34 (08/25/23) 6.97 (07/17/23) FERRITIN ng/mL 341 (09/12/23) 402 (07/17/23) TRANSFERRIN SAT% % 20 (09/12/23) 15 (08/11/23) 23 (07/17/23) Hemoglobin is at goal. Iron Saturation is below goal. Ferritin is at goal. Will adjust DAGOBERTO and intravenous iron. Nutritional and Metabolic Assessment ALBUMIN (G/DL) g/dL 3.1 (09/12/23) 3.6 (08/11/23) 3.5 (07/17/23) BICARBONATE (CO2) mEq/L 30 (09/12/23) 23 (08/11/23) 25 (07/17/23) POTASSIUM (MMOL/L) IN SER/PLAS mEq/L 4.7 (09/12/23) 5.0 (08/11/23) 4.6 (07/17/23) Sodium mEq/L 135 (09/12/23) 143 (08/11/23) 142 (07/17/23) 25 OH VITAMIN D ng/mL 27.5 (09/12/23) 29.5 (07/17/23) Albumin is below goal. Encourage high biological value protein intake. Oral nutritional supplement program. Potassium is at goal. Starting liquicel in addition to protein bars and high protein diet already in place Bone and Mineral Metabolism Assessment CALCIUM mg/dL 7.7 (09/12/23) 9.0 (08/11/23) 8.4 (07/17/23) CALCIUM (MG/DL) CORRECTED FOR ALBUMIN IN SER/PLAS mg/dL 8.4 (09/12/23) 9.3 (08/11/23) 8.8 (07/17/23) CALCIUM PHOSPHORUS PRODUCT, COR 41 (09/12/23) 44 (08/11/23) 50 (07/17/23) PHOSPHATE (MG/DL) IN SER/PLAS mg/dL 4.9 (09/12/23) 4.7 (08/11/23) 5.7 (07/17/23) IPTH pg/mL 592 (09/12/23) 308 (07/17/23) Corrected calcium is below goal. Phosphorus is at goal. Intact PTH is at goal. Renvela to continue Calcitriol increase to 0.25 mcg/day (from tiw) Cardiovascular Assessment Blood pressure reviewed and is not at goal, see below. Continue same cardiovascular medications. Estimated dry weight is appropriate. More euvolemic now Stop amlodipine Transplant Status Patient is not a candidate. Age and co-morbid conditions Resuscitation Status Additional Comments: Doing well on CAPD Transitioning to CCPD per preference Increase prescription as not adequate and low residual function Stop amlodipine Increase protein intake as above Monitor closely with transition to cycler Davide Deutsch MD [ Signed And locked electronically On 09/18/2023 at 03:22:29 PM ] Transcribed: Davide Deutsch ( 09/18/2023 ) documented in this encounter Plan of Treatment Not on file documented as of this encounter Visit Diagnoses Not on filedocumented in this encounter Care Teams Groundskeeper Porter Relationship Specialty Start Date End Date Harsha Chaudhary MD [address] [place] [address] PCP - General Family Medicine 12/22/22 documented as of this encounter
--- OUTSIDE RECORDS SUMMARY | 2023-11-13 11:16 | XMS_ITS | Encounter Summary ---
Author Organization [facility] [place] Address [address] [place] [address] Care Team Providers Care Mobile Health Vehicle Operator Name Role Phone Harsha Chaudhary MD Primary Care Provider [phone] Encounter Details Date Type Department Care Team (Late st Contact Info) Description 08/25/2023 Orders Only [facility] [place] [address] [place] [address] Davide Deutsch MD [address] [place] [address] Social History Tobacco Use Types [...] Procedure Name Priority Date/Time Associated Diagnosis Comments HEMATOLOGY Routine 08/25/2023 documented in this encounter Results * (ABNORMAL) HEMATOLOGY (08/25/2023) Neutrophils 65.7 40.0 - 75.0 % [facility] Lymphocytes Relative 20.3 19.0 - 48.0 % [facility] Monocytes 6.4 3.0 - 10.0 % [facility] Eosinophils Relative 5.9 0.0 - 7.0 % [facility] Basophils Relative 0.5 0.0 - 1.5 % [facility] FABRIZIO 1.2 0.0 - 4.0 % [facility] WBC 8.34 4.80 - 10.80 1000/mcL [facility] RBC 3.00(L) 4.20 - 5.40 mill/mcL [facility] Hematocrit 28.8(L) 37.0 - 47.0 % [facility] MCV 96 80 - 100 fl [facility] MCH 30.2 27.0 - 31.0 pg [facility] MCHC 31.4 30.0 - 36.0 g/dL [facility] RDW 15.5(H) 11.5 - 14.5 % [facility] Hemoglobin 9.0(L) 12.0 - 16.0 g/dL [facility] Hemoglobin x 3 27.0(L) 36.0 - 48.0 % [facility] Platelets 171 130 - 400 1000/mcL [facility] 08/25/2023 08/26/2023 7:1 8 AM CDT Narrative [facility] - 08/26/2023 Unless otherwise specified, test(s) performed at: [facility], [address] [place] [address], [place] [address] RADIOLOGIST: Porfirio Mahoney M.D., Ph.D For any questions, please call [employer] service at FREQUENCY:OTHER Resulting Agency Comment Specimen source: Blood Davide Deutsch MD LAB BLOOD ORDERABLES Performing Organization Address [facility]/State/ZIP Co de Phone Number [facility] See order comments or contact performing lab Unknown, [place] documented in this encounter Visit Diagnoses Not on filedocumented in this encounter Care Teams Mobile Health Vehicle Operator Relationship Specialty Start Date End Date Harsha Chaudhary MD [address] [place] [address] PCP - General Family Medicine 12/22/22 documented as of this encounter
--- OUTSIDE RECORDS SUMMARY | 2023-11-13 11:16 | XMS_ITS | Encounter Summary ---
Author Organization [facility] Address [address] [place] [address] Care Team Providers Care Cat Scan Tech Name Role Phone Harsha Chaudhary MD Primary Care Provider [phone] Encounter Details Date Type Department Care Team (Late st Contact Info) Description 08/25/2023 Treatment [facility] [address] [place] [address] Davide Deutsch MD [address] [facility] [place] [address] Social History Tobacco Use Types [...] Dialysis Note - Davide Deutsch MD - 08/25/2023 2:17 PM CDT Date: Aug 25, 2023 Patient Name: Angelina Gasca : 1945 Chart #: [id number] Sex: F This patient was personally seen for a complete visit as part of routine monthly dialysis care. A review of the dialysis treatment, blood pressure, estimated dry weight, and recent lab values was made. These were discussed with the patient and staff as necessary. TECHNICAL SERVICE REP: Davide Deutsch MD LOCATION: [phone] SCHEDULE: No Routine Schedule Subjective 4/19: She is on CAPD right now, will [...] CP or SOB. All fluid is clear. Review of Systems None reported. Exam Respiratory - Clear to auscultation bilaterally. Cardiovascular - Regular rate. Regular rhythm. Gastrointestinal - Normal bowel sounds, soft, non-tender. Edema - 2+ leg edema. PD catheter exit site - incision healed, PD insertion site slightly pink around site only Medication List Medication Sig Start Date allopurinol 300 mg tablet Take 1/2 tablet by mouth every morning amlodipine 5 mg tablet Take 2 tablet by mouth every morning atenolol 50 mg tablet Take 1 tablet by mouth twice a day calcitriol 0.25 mcg capsule Take 1 capsule by mouth three times a week. Mon.Wed. Mon. 07/19/2023 hydrochlorothiazide 50 mg tablet Take 1 tablet by mouth once a day losartan 50 mg tablet Take 1 tablet by mouth every morning Renvela (sevelamer carbonate) 800 mg tablet Take 1 tablet by mouth three times a day. with breakfast, lunch, and dinner for high phosphorus. 07/19/2023 tamoxifen 20 mg tablet Take 1 tablet by mouth once a day Allergy List Allergen Reaction Reaction Severity Onset Date LISINOPRIL Unknown~Unknown Medications reviewed and no changes were made. Treatment and Adequacy Assessment BUN mg/dL 65 (08/11/23) 62 (07/17/23) CREATININE (MG/DL) IN SER/PLAS mg/dL 4.86 (08/11/23) 4.22 (07/17/23) PET and adequacy are to be done 09/12/23 Peritoneal Dialysis Access Assessment Placed on: May 2023 Surgeon - Matilde Mosley She had hernia repair and lap-placement of PD catheter at same time with 6 weeks healing time before PD. Healed nicely now Anemia Assessment HEMOGLOBIN (G/DL) IN BLOOD g/dL 8.4 (08/11/23) 9.3 (07/17/23) PLATELETS 1000/mcL 185 (07/17/23) WBC (BLOOD) 1000/mcL 6.97 (07/17/23) FERRITIN ng/mL 402 (07/17/23) TRANSFERRIN SAT% % 15 (08/11/23) 23 (07/17/23) Hemoglobin is below goal. Iron Saturation is below goal. Ferritin is below goal. Will adjust DAGOBERTO and intravenous iron. Giving IV iron today and Mircera 150 mcg Hgb also likely a little diluted as she is fluid up Nutritional and Metabolic Assessment ALBUMIN (G/DL) g/dL 3.6 (08/11/23) 3.5 (07/17/23) BICARBONATE (CO2) mEq/L 23 (08/11/23) 25 (07/17/23) POTASSIUM (MMOL/L) IN SER/PLAS mEq/L 5.0 (08/11/23) 4.6 (07/17/23) Sodium mEq/L 143 (08/11/23) 142 (07/17/23) 25 OH VITAMIN D ng/mL 29.5 (07/17/23) Albumin is below goal. Encourage high biological value protein intake. Potassium is at goal. Bone and Mineral Metabolism Assessment CALCIUM mg/dL 9.0 (08/11/23) 8.4 (07/17/23) CALCIUM (MG/DL) CORRECTED FOR ALBUMIN IN SER/PLAS mg/dL 9.3 (08/11/23) 8.8 (07/17/23) CALCIUM PHOSPHORUS PRODUCT, COR 44 (08/11/23) 50 (07/17/23) PHOSPHATE (MG/DL) IN SER/PLAS mg/dL 4.7 (08/11/23) 5.7 (07/17/23) IPTH pg/mL 308 (07/17/23) Corrected calcium is at goal. Phosphorus is at goal. Intact PTH is at goal. Renvela started, phos now at goal Cardiovascular Assessment Blood pressure reviewed and is not at goal, see below. Continue same cardiovascular medications. Estimated dry weight is appropriate. Will increase torsemdie to 20mg twice a day (40mg at a time make her urinate too much she reports) Continue 2.5% bags with PD No change in BP meds until euvolemic Transplant Status Patient is not a candidate. Age and co-morbid conditions Resuscitation Status Additional Comments: Doing well on CAPD Over dry weight -> continue 2.5% bags, increase to 2L bags, continue 3hr dwell time, increase torsemide to take 20mg twice daily (taking once a day now) Adequacy and PET test planned 09/12/23 Cycler training to start 09/12/23 Mircera and IV iron today, trend Hgb Davide Deutsch MD [ Signed And locked electronically On 08/25/2023 at 02:21:55 PM ] Transcribed: Davide Deutsch ( 08/25/2023 ) documented in this encounter Plan of Treatment Not on file documented as of this encounter Visit Diagnoses Not on filedocumented in this encounter Care Teams Cat Scan Tech Relationship Specialty Start Date End Date Harsha Chaudhary MD [address] [place] [address] PCP - General Family Medicine 12/22/22 documented as of this encounter
--- OUTSIDE RECORDS SUMMARY | 2023-11-13 11:16 | XMS_ITS | Encounter Summary ---
Author Organization [facility] [place] Address [address] [facility] [address] [place] [facility] [address] [place] [address] Care Team Providers Care Interventional Sale Consultant Name Role Phone Harsha Chaudhary MD Primary Care Provider [phone] Encounter Details Date Type Department Care Team (Late st Contact Info) Description 09/12/2023 Orders Only [facility] [place] [address] [facility] [address] [place] [address] Davide Deutsch MD [address] [place] [address] Social History Tobacco Use Types [...] Procedure Name Priority Date/Time Associated Diagnosis Comments P.E.T. INTERPRETATION Routine 09/12/2023 P.E.T. INTERPRETATION Routine 09/12/2023 P.E.T. INTERPRETATION Routine 09/12/2023 P.E.T. GLUCOSE, PDF Routine 09/12/2023 P.E.T. GLUCOSE, PDF Routine 09/12/2023 P.E.T. GLUCOSE, PDF Routine 09/12/2023 P.E.T. CREATININE, PDF Routine 09/12/2023 P.E.T. CREATININE, PDF Routine 09/12/2023 P.E.T. CREATININE, PDF Routine 09/12/2023 SPECIAL CHEMISTRY Routine 09/12/2023 URINE CLEARANCE Routine 09/12/2023 PDF CHEMISTRY Routine 09/12/2023 PD ADEQUACY Routine 09/12/2023 PD ADEQUACY Routine 09/12/2023 IMMUNO CHEMISTRY Routine 09/12/2023 PATIENT INFORMATION Routine 09/12/2023 PATIENT INFORMATION Routine 09/12/2023 PATIENT INFORMATION Routine 09/12/2023 TRACE ELEMENTS Routine 09/12/2023 HEMATOLOGY Routine 09/12/2023 CHEMISTRY Routine 09/12/2023 CHEMISTRY Routine 09/12/2023 documented in this encounter Results * P.E.T. CREATININE, PDF (09/12/2023) Creatinine, PDF 2 Hr Cor 2.3 mg/dL [...] MD LAB BLOOD ORDERABLES Performing Organization Address City/[facility]/ZIP Co de Phone Number [facility] See order comments or contact performing lab Unknown, [place] * P.E.T. GLUCOSE, PDF (09/12/2023) Glucose, PDF 2 Hr 1,322 mg/dL [facility] Comment: A reference range for this assay has not been established for body fluids. If blood results are available for this analyte, results may be interpreted in comparison to those results. 09/12/2023 09/14/2023 6:0 0 PM CDT Narrative Resulting Agency Comment Specimen source: PD Fluid Davide Deutsch MD LAB BLOOD ORDERABLES Performing Organization Address [facility] de Phone Number [facility] See order comments or contact performing lab Unknown, [place] * P.E.T. INTERPRETATION (09/12/2023) D/P Ratio PET 2 Hr 0.36 [facility] D/D0 Ratio PET 2 Hr 0.64 [facility] 09/12/2023 09/14/2023 6:0 0 PM CDT Narrative [facility] - 09/14/2023 Unless otherwise specified, test(s) performed at: [facility], [address] [place] [address], [place] [address] CHAR PULLER: Porfirio Mahoney M.D., Ph.D For any questions, please call customer service at FREQUENCY:MONTHLY Resulting Agency Comment Specimen source: PD Fluid Davide Deutsch MD LAB BLOOD ORDERABLES Performing Organization Address City/[facility] Co de Phone Number [facility] See order comments or contact performing lab Unknown, [place] * PDF CHEMISTRY (09/12/2023) Urea Nitrogen, PDF 24 Hr 2,848.0 mg/24 hr [facility] Urea Nitrogen, PDF Timed 32 mg/dL [facility] Comment: A reference range for this assay has not been established for body fluids. If blood results are available for this analyte, results may be interpreted in comparison to those results. Urea Clearance, PD Fluid 5.3 mL/min [facility] Urea Clearance, PDF Norm 4.9 mL/min [facility] Urea Clear, Tot Norm Wkly 59 L/wk [facility] Urea Clear, PDF Norm Wkly 53 L/wk [facility] Creatinine, PDF Timed Uncor 4.5 mg/dL [facility] Comment: A reference range for this assay has not been established for body fluids. If blood results are available for this analyte, results may be interpreted in comparison to those results. Creatinine, PDF Timed Cor 4.4 mg/dL [facility] Comment: Creatinine values have been corrected for glucose interference. [facility] glucose correction factor for creatinine is 0.0002. Creatinine, PDF 24 Hr 391.6 mg/24 hr [facility] Creatinine Clear, PDF 4.3 mL/min [facility] Creatinine Clear, PDF Norm 3.9 mL/min [facility] Creat Clear, PDF Norm Wkly 43 L/wk [facility] Creat Clear, Tot Wkly 73 L/wk [facility] Glucose, PDF Timed 663 mg/dL [facility] Comment: A reference range for this assay has not been established for body fluids. If blood results are available for this analyte, results may be interpreted in comparison to those results. 09/12/2023 09/14/2023 6:2 1 PM CDT Narrative Resulting Agency Comment Specimen source: PD Fluid Davide Deutsch MD LAB BODY FLUIDS AND STOOLS ORDERABLES [facility] See order comments or contact performing lab Unknown, [place] * PD ADEQUACY (09/12/2023) Kt/V, Total 1.58 [facility] Comment: KDOQI Guidelines recommend weekly Kt/V of >=1.7 for adults. Kt/V, Peritoneal 1.42 [facility] Creat Clear, Tot Norm Wkly 66 L/wk [facility] Creat Clear, PDF Norm Wkly 39 L/wk [facility] PNA, Normalized 0.61 g/kg/day [facility] PNA 39 g/day [facility] 09/12/2023 09/14/2023 6:2 1 PM CDT Narrative Resulting Agency Comment Specimen source: PD Fluid Davide Deutsch MD LAB BODY FLUIDS AND STOOLS ORDERABLES Performing Organization Address City/[facility]/ZIP Co de Phone Number [facility] See order comments or contact performing lab Unknown, [place] * PATIENT INFORMATION (09/12/2023) Urea Volume Distribution (Adger) 37.2 L [facility] 09/12/2023 09/14/2023 6:2 1 PM CDT Narrative [facility] - 09/14/2023 Unless otherwise specified, test(s) performed at: [facility], [address] [place] [address], [place] [address] CHAR PULLER: Porfirio Mahoney M.D., Ph.D For any questions, please call customer service at FREQUENCY:MONTHLY Resulting Agency Comment Specimen source: PD Fluid Davide Deutsch MD LAB BLOOD ORDERABLES Performing Organization Address [facility]/ZIP Co de Phone Number [facility] See order comments or contact performing lab Unknown, [place] * (ABNORMAL) HEMATOLOGY (09/12/2023) Pathologist [facility] WBC 5.96 4.80 - 10.80 1000/mcL [facility] RBC 3.47(L) 4.20 - 5.40 mill/mcL [facility] Hematocrit 34.5(L) 37.0 - 47.0 % [facility] MCV 99 80 - 100 fl [facility] MCH 30.5 27.0 - 31.0 pg [facility] MCHC 30.7 30.0 - 36.0 g/dL [facility] RDW 14.6(H) 11.5 - 14.5 % [facility] Hemoglobin 10.6(L) 12.0 - 16.0 g/dL [facility] Hemoglobin x 3 31.8(L) 36.0 - 48.0 % [facility] Platelets 202 130 - 400 1000/mcL [facility] 09/12/2023 09/14/2023 6:0 7 PM CDT Narrative [facility] - 09/14/2023 Unless otherwise specified, test(s) performed at: [facility], [address] [place] [address] CHAR PULLER: Porfirio Mahoney M.D., Ph.D For any questions, please call customer service at FREQUENCY:MONTHLY Resulting Agency Comment Specimen source: Blood Davide Deutsch MD LAB BLOOD ORDERABLES Performing Organization Address [facility] de Phone Number [facility] See order comments or contact performing lab Unknown, [place] * IMMUNO CHEMISTRY (09/12/2023) Pathologist [facility] Hep B Surface Ag Negative Negative [facility] 09/12/2023 09/14/2023 6:1 4 PM CDT Narrative Resulting Agency Comment Specimen source: Plasma Davide Deutsch MD LAB BLOOD ORDERABLES Performing Organization Address [facility] de Phone Number [facility] See order comments or contact performing lab Unknown, [place] * (ABNORMAL) [facility] Chemistry (09/12/2023) Pathologist [facility] PTH 592(H) 16 - 80 pg/mL [facility] 09/12/2023 09/14/2023 6:1 4 PM CDT Narrative [facility] - 09/14/2023 Unless otherwise specified, test(s) performed at: [facility], [address] [place] [address], [place] [address] CHAR PULLER: Porfirio Mahoney M.D., Ph.D For any questions, please call customer service at FREQUENCY:MONTHLY Resulting Agency Comment Specimen source: Plasma Davide Deutsch MD LAB BLOOD ORDERABLES Performing Organization Address [facility] Co de Phone Number [facility] See order comments or contact performing lab Unknown, [place] * P.E.T. CREATININE, PDF (09/12/2023) Creatinine, PDF 0 Hr Cor 0.0 mg/dL [facility] Creatinine, PDF 0 Hr Uncor 0.5 mg/dL [facility] Comment: A reference range for this assay has not been established for body fluids. If blood results are available for this analyte, results may be interpreted in comparison to those results. 09/12/2023 09/14/2023 4:2 9 PM CDT Narrative Resulting Agency Comment Specimen source: PD Fluid Davide Deutsch MD LAB BLOOD ORDERABLES Performing Organization Address [facility] Co de Phone Number [facility] See order comments or contact performing lab [place], [place] * P.E.T. GLUCOSE, PDF (09/12/2023) Glucose, PDF 0 Hr 2,065 mg/dL [facility] Comment: A reference range for this assay has not been established for body fluids. If blood results are available for this analyte, results may be interpreted in comparison to those results. 09/12/2023 09/14/2023 4:2 9 PM CDT Narrative Resulting Agency Comment Specimen source: PD Fluid Davide Deutsch MD LAB BLOOD ORDERABLES Performing Organization Address [facility] de Phone Number [facility] See order comments or contact performing lab Unknown, [place] * P.E.T. INTERPRETATION (09/12/2023) D/P Ratio PET 0 Hr 0.00 [facility] D/D0 Ratio PET 0 Hr 1.00 [facility] 09/12/2023 09/14/2023 4:2 9 PM CDT Narrative [facility] - 09/14/2023 Unless otherwise specified, test(s) performed at: [facility], [address] [place] [address], [place] [address] CHAR PULLER: Porfirio Mahoney M.D., Ph.D For any questions, please call customer service at FREQUENCY:MONTHLY Resulting Agency Comment Specimen source: PD Fluid Davide Deutsch MD LAB BLOOD ORDERABLES Performing Organization Address [facility] Co de Phone Number [facility] See order comments or contact performing lab Unknown, [place] * TRACE ELEMENTS (09/12/2023) Aluminum <5 0 - 10 mcg/L [facility] Comment: This test was developed and its performance characteristics determined by [facility]. It has not been cleared or approved by the FDA. The laboratory is regulated under CLIA as qualified to perform high complexity testing. This test is used for clinical purposes. It should not be regarded as investigational or for research. 09/12/2023 09/14/2023 8:5 3 AM CDT Narrative [facility] - 09/14/2023 Unless otherwise specified, test(s) performed at: [facility], [address] [place] [address], [place] [address] CHAR PULLER: Porfirio Mahoney M.D., Ph.D For any questions, please call customer service at FREQUENCY:MONTHLY Resulting Agency Comment Specimen source: Serum Davide Deutsch MD LAB BLOOD ORDERABLES Performing Organization Address [facility] de Phone Number [facility] See order comments or contact performing lab Unknown, [place] * P.E.T. CREATININE, PDF (09/12/2023) Creatinine, PDF 4 Hr Cor 3.9 mg/dL [facility] Creatinine, PDF 4 Hr Uncor 4.1 mg/dL [facility] Comment: A reference range for this assay has not been established for body fluids. If blood results are available for this analyte, results may be interpreted in comparison to those results. 09/12/2023 09/14/2023 3:1 0 PM CDT Narrative Resulting Agency Comment Specimen source: PD Fluid Davide Deutsch MD LAB BLOOD ORDERABLES Performing Organization Address [facility] Co de Phone Number [facility] See order comments or contact performing lab Unknown, [place] * P.E.T. GLUCOSE, PDF (09/12/2023) Glucose, PDF 4 Hr 776 mg/dL [facility] Comment: A reference range for this assay has not been established for body fluids. If blood results are available for this analyte, results may be interpreted in comparison to those results. 09/12/2023 09/14/2023 3:1 0 PM CDT Narrative Resulting Agency Comment Specimen source: PD Fluid Davide Deutsch MD LAB BLOOD ORDERABLES [facility] See order comments or contact performing lab Unknown, [place] * P.E.T. INTERPRETATION (09/12/2023) Creatinine Transport Average Low [facility] Comment: Creatinine Transport interpretation based on 4 Hr D/P Ratio only. Variations both in D/P ratios and interpretations may be due to excessive residual dialysate and/or deviation from test protocol. ??All creatinines have been corrected for glucose interference, correction factor = 0.0002. Standard PET - Peritoneal Transport Classification* Solute Transport ?? 2 hr D/P ?4 hr D/P ?2 hr D/D0 ?? 4 hr D/D0 ?? Ultra Filtration Creatinine ??Creatinine ??Glucose ? Glucose ? Volume ? High ? 0.63-0.87 ?? 0.82-1.03 ?? 0.43-0.24 ?? 0.25-0.12 ?? [id number] Average High ? 0.49-0.62 ?? 0.66-0.81 ?? 0.54-0.44 ?? 0.37-0.26 ?? 4772-3595 Average ?0.48 ?0.65 ?0.55 ?0.38 ?2367 Average Low ?0.34-0.47 ?? 0.50-0.64 ?? 0.66-0.56 ?? 0.49-0.39 ?? [phone] Low ?0.23-0.33 ?? 0.34-0.49 ?? 0.78-0.67 ?? 0.61-0.50 ?? [phone] *Chilo MiguelJ, Erica KD, Linda R, Paul BF, Frederick LP, Dewey HL, et al. Peritoneal equilibration test. Perit Dial Bull 1987; 7:138-147. D/P Ratio PET 4 Hr 0.62 [facility] Solute Transport Class Inconclusive [facility] D/D0 Ratio PET 4 Hr 0.38 [facility] Glucose Transport Average [facility] Comment: The result was added after test was released. Glucose Transport interpretation based on 4 Hr D/D0 Ratio for Standard PET, and 4 Hr PDF Glucose for Fast PET. 09/12/2023 09/14/2023 3:1 0 PM CDT Narrative [facility] - 09/14/2023 Unless otherwise specified, test(s) performed at: [facility], [address] [place] [address], [place] [address] CHAR PULLER: Porfirio Mahoney M.D., Ph.D For any questions, please call customer service at FREQUENCY:MONTHLY Resulting Agency Comment Specimen source: PD Fluid Davide Deutsch MD LAB BLOOD ORDERABLES [facility] See order comments or contact performing lab Unknown, [place] * (ABNORMAL) URINE CLEARANCE (09/12/2023) Urea Nitrogen, Urine Timed 156 mg/dL [facility] Urea Nitrogen, Urine 24 Hr 0.3(L) 12.0 - 20.0 g/24 hr [facility] Urea Clear, Urine Norm 0.5(L) 64.0 - 99.0 mL/min [facility] Urea Clearance, Urine 0.6(L) 64.0 - 99.0 mL/min [facility] Urea Clear, Urine Norm Wkly 6 L/wk [facility] Creatinine, Urine Timed 136.4 mg/dL [facility] Creatinine, 24H Ur 0.3(L) 0.5 - 1.6 g/24 hr [facility] Creatinine Clear, Urine 3.0 mL/min [facility] Creat Clear, Urine Norm 2.7(L) 77.0 - 94.0 mL/min [facility] Creat Clear, Urine Wkly 30.2 L/wk [facility] 09/12/2023 09/14/2023 3:1 7 PM CDT Narrative [facility] Comment Specimen source: Urine Davide Deutsch MD LAB URINE ORDERABLES Performing Organization Address City/[facility]/ZIP Co de Phone Number [facility] See order comments or contact performing lab Unknown, [place] * PD ADEQUACY (09/12/2023) Creat Clear, Urine Nor Wkly 27 L/wk [facility] Kt/V, Residual 0.16 [facility] 09/12/2023 09/14/2023 3:1 7 PM CDT Narrative [facility] - 09/14/2023 Unless otherwise specified, test(s) performed at: [facility], [address] [place] [address], [place] [address] CHAR PULLER: Porfirio Mahoney M.D., Ph.D For any questions, please call customer service at FREQUENCY:MONTHLY Resulting Agency Comment Specimen source: Urine Davide Deutsch MD LAB BODY FLUIDS AND STOOLS ORDERABLES Performing Organization Address [facility]/ZIP Co de Phone Number [facility] See order comments or contact performing lab Unknown, [place] * (ABNORMAL) SPECIAL CHEMISTRY (09/12/2023) Vitamin D, 25-OH, Total 27.5(L) 30.0 - 100.0 ng/mL [facility] Comment: Please Note: ??Effective May 16, 2021, the methodology for this test has changed to the SIEMENS ATELLICA method 09/12/2023 09/14/2023 3:1 0 PM CDT Narrative [facility]ing Agency Comment Specimen source: Serum Davide Deutsch MD LAB BLOOD BANK TEST ORDERABLES [facility] See order comments or contact performing lab Unknown, [place] * (ABNORMAL) [facility] (09/12/2023) BUN 37(H) 6 - 19 mg/dL [facility] Creatinine 6.32(H) 0.60 - 1.30 mg/dL [facility] BUN/Creatinine Ratio 5.9(L) 10.0 - 20.0 [facility] Sodium 135(L) 136 - 145 mEq/L [facility] Potassium 4.7 3.5 - 5.1 mEq/L [facility] Chloride 97 96 - 108 mEq/L [facility] Bicarbonate (CO2) 30 20 - 31 mEq/L [facility] Calcium 7.7(L) 8.7 - 10.4 mg/dL [facility] Comment: Please note change in reference range. Corrected Calcium 8.4(L) 8.7 - 10.4 mg/dL [facility] Comment: Corrected Calcium is not equivalent to measured Ionized Calcium. Phosphorus 4.9(H) 2.6 - 4.5 mg/dL [facility] Calcium Phosphorus Product 38 0 - 54 [facility] Calcium Phosporus Product, Cor 41 0 - 54 [facility] Alkaline Phosphatase 61 35 - 104 U/L [facility] Albumin 3.1(L) 3.5 - 5.2 g/dL [facility] Glucose 105(H) 70 - 100 mg/dL [facility] Magnesium 1.7 1.6 - 2.6 mg/dL [facility] Comment: Custom Exception Ferritin 341(H) 10 - 291 ng/mL [facility] Iron 42 30 - 160 mcg/dL [facility] UIBC 172 155 - 355 mcg/dL [facility] TIBC 214 185 - 515 mcg/dL [facility] Iron Saturation (TSat) 20 20 - 55 % [facility] 09/12/2023 09/14/2023 3:1 0 PM CDT Narrative Resulting Agency Comment Specimen source: Serum Davide Deutsch MD LAB BLOOD ORDERABLES [facility] See order comments or contact performing lab Unknown, [place] * PATIENT INFORMATION (09/12/2023) Patient BSA 1.89 sq. M. [facility] Comment: Normalized values are calculated using the patient's actual BSA and normalized to the average BSA of 1.73m2. 09/12/2023 09/14/2023 3:1 0 PM CDT Narrative [facility] - 09/14/2023 Unless otherwise specified, test(s) performed at: [facility], [address] [place] [address], [place] [address] CHAR PULLER: Porfirio Mahoney M.D., Ph.D For any questions, please call customer service at FREQUENCY:MONTHLY Resulting Agency Comment Specimen source: PD Fluid Davide Deutsch MD LAB BLOOD ORDERABLES Performing Organization Address [facility] Co de Phone Number [facility] See order comments or contact performing lab Unknown, [place] * PATIENT INFORMATION (09/12/2023) Patient Weight 79.2 [facility] Patient Height 168.0 [facility] Amputee Status NO [facility] Amputee Parts NONE [facility] Drain volume, PDF 8,900 [facility] Collection Time, PDF 24.0 [facility] Urine Volume 200 [facility] Collection Interval, Ur 24.0 [facility] 09/12/2023 09/12/2023 Narrative [facility] - 09/14/2023 Unless otherwise specified, test(s) performed at: [facility], [address] [place] [address], [place] [address] CHAR PULLER: Porfirio Mahoney M.D., Ph.D For any questions, please call customer service at FREQUENCY:MONTHLY Resulting Agency Comment Specimen source: PD Fluid Davide Deutsch MD LAB BLOOD ORDERABLES Performing Organization Address [facility] Co de Phone Number [facility] See order comments or contact performing lab [place], [place] documented in this encounter Visit Diagnoses Not on filedocumented in this encounter Care Teams Interventional Sale Consultant Relationship Specialty Start Date End Date Harsha Chaudhary MD [address] [place] [address] PCP - General Family Medicine 12/22/22 documented as of this encounter
--- OUTSIDE RECORDS SUMMARY | 2023-11-13 11:16 | XMS_ITS | Encounter Summary ---
Author Organization [facility] [place] Address [address] [place] [address] Care Team Providers Care Family Practice Physician Assistant Name Role Phone Harsha Chaudhary MD Primary Care Provider [phone] Encounter Details Date Type Department Care Team (Late st Contact Info) Description 08/11/2023 Treatment [facility] [place] [address] [place] [address] Davide Deutsch MD [address] [place] [address] Social History Tobacco Use Types [...] as of this encounter Miscellaneous Notes * External Note - Davide Deutsch MD - 08/11/2023 12:00 AM CDT Date: Aug 11, 2023 Patient Name: Angelina Gasca : 1945 Chart #: [id number] Sex: F Has the patient previously been receiving In-Center hemodialysis? No Has the patient participated in all recommended training? Yes. Access site is ready for patient to start home dialysis? Yes. Physician has discussed the following: X Home environment requirements have been reviewed with patient by training personnel. X Pt understands importance of maintaining proper environment at home. X Reviewed PD drug therapy. X Reviewed medications and adjusted them, if needed. X Pt is progressing in training according to the training plan. X Reviewed constipation and infection protocols. X Possible emergency scenarios discussed with patient. X Pt understands how to handle fluid overload. X Discussed manual drain and what to expect at home. X Discussed peritonitis risk, how to recognize symptoms and signs of peritonitis, and how to respond accordingly. X Pt understands who to contact in an emergency. X Physical exam completed. Abdomen is soft and non-tender, bowel sounds are normal, catheter exit site and tunnel look healthy. Physician has observed the following: X physician monitored technique and observed patient on PD during a manual exchange and answered questions during the exchange. X pt and caregive have a good understanding and adequate technique of bp monitoring, exit site care, and machine alarms and alerts. X I have answered all of the patient's and family's questions. X Patient ready to do treatment at home. Patient transitioning to home today to do CAPD. I saw her today on her last day of training in CAPD. Her completed exchange without issues, good technique. PD RN to visit them in home today as well to review treatment at home. She will return after a few weeks to do cycler training. Davide Deutsch MD [ Signed And locked electronically On 08/11/2023 at 11:00:19 PM ] Transcribed: Davide Deutsch ( 08/11/2023 ) documented in this encounter Plan of Treatment Not on file documented as of this encounter Visit Diagnoses Not on filedocumented in this encounter Care Teams Family Practice Physician Assistant Relationship Specialty Start Date End Date Harsha Chaudhary MD [address] [place] [address] PCP - General Family Medicine 12/22/22 documented as of this encounter
--- OUTSIDE RECORDS SUMMARY | 2023-11-13 11:16 | XMS_ITS | Encounter Summary ---
Author Organization [facility] Address [address] [place] [address] Care Team Providers Care Pole Peeler Name Role Phone Harsha Chaudhary MD Primary Care Provider [phone] Encounter Details Date Type Department Care Team (Late st Contact Info) Description 06/18/2023 Orders Only [facility] [place] [address] [facility] [address] [place] [address] Davide Deutsch MD [address] [place] [address] Stage 5 chronic kidney disease (HCC) Social History Tobacco Use Types Packs/Day Years [...] documented as of this encounter Visit Diagnoses Diagnosis Stage 5 chronic kidney disease (HCC) documented in this encounter Care Teams Pole Peeler Relationship Specialty Start Date End Date Harsha Chaudhary MD [address] [place] [address] PCP - General Family Medicine 12/22/22 documented as of this encounter
--- OUTSIDE RECORDS SUMMARY | 2023-11-13 11:16 | XMS_ITS | Encounter Summary ---
Author Organization [facility] Address [address] [place] [address] [facility] [address] [place] [address] Care Team Providers Care Moving Picture Producer Name Role Phone Harsha Chaudhary MD Primary Care Provider [phone] Encounter Details Date Type Department Care Team (Late st Contact Info) Description 07/10/2023 Orders Only [facility] [place] [address] [facility] [address] [place] [address] Davide Deutsch MD [address] [place] [address] Stage 5 chronic kidney disease [...] Procedure Name Priority Date/Time Associated Diagnosis Comments HEPATITIS B SURFACE ANTIBODY QUANT Routine 07/10/2023 Stage 5 chronic kidney disease (HCC) HEPATITIS B SURFACE ANTIGEN Routine 07/10/2023 Stage 5 chronic kidney disease (HCC) HEMOGLOBIN Routine 07/10/2023 Stage 5 chronic kidney disease (HCC) PTH, INTACT Routine 07/10/2023 Stage 5 chronic kidney disease (HCC) RENAL FUNCTION PANEL Routine 07/10/2023 Stage 5 chronic kidney disease (HCC) documented in this encounter Results * Hepatitis B surface antigen (07/10/2023) Hepatitis B Surface Ag External None detected [facility] Blood (Blood, Venous) 07/10/2023 Davide Deutsch MD LAB BLOOD ORDERABLES Performing Organization Address [facility] Co de Phone Number [facility] * Hepatitis B surface antibody (07/10/2023) Hepatitis B Surface Ab <3.50 [facility] Comment:<8.5 Considered not immune to HBV infection. >=8.5 to < 11.5 Indeterminate result, unable to dertermine if antibody is present at levels consistent with immunity. >= 11.5 Considered immune to HBV infection. Blood (Blood, Venous) 07/10/2023 Davide Deutsch MD LAB BLOOD ORDERABLES Performing Organization Address [facility] Co de Phone Number [facility] * (ABNORMAL) PTH, intact (07/10/2023) Parathyroid Hormone, Intact 166(H) pg/mL [facility] Blood (Blood, Venous) 07/10/2023 Davide Deutsch MD LAB BLOOD ORDERABLES Performing Organization Address [facility] Co de Phone Number [facility] * (ABNORMAL) Hemoglobin (07/10/2023) Hemoglobin 8.9(L) g/dL [facility] MCV 96.0 [facility] Blood (Blood, Venous) 07/10/2023 Davide Deutsch MD LAB BLOOD ORDERABLES Performing Organization Address [facility] Co de Phone Number [facility] * (ABNORMAL) Renal function panel (07/10/2023) Glucose 132(H) mg/dL [facility] BUN 61(H) mg/dL [facility] Creatinine 4.41(H) mg/dL [facility] BUN/Creatinine Ratio 14 [facility] Sodium 142 mEq/L [facility] Potassium 4.6 mEq/L [facility] Chloride 108(H) [facility] Carbon Dioxide 22 mmol/L [facility] Calcium 8.4(L) mg/dL [facility] Phosphorus, Serum 5.0(H) mg/dL [facility] Albumin (Blood) 3.7(L) g/dL [facility] eGFR 10(L) [facility] Blood (Blood, Venous) 07/10/2023 Davide Deutsch MD LAB BLOOD ORDERABLES [facility] documented in this encounter Visit Diagnoses Diagnosis Stage 5 chronic kidney disease (HCC) documented in this encounter Care Teams Moving Picture Producer Relationship Specialty Start Date End Date Harsha Chaudhary MD [address] [place] [address] PCP - General Family Medicine 12/22/22 documented as of this encounter
--- OUTSIDE RECORDS SUMMARY | 2023-11-13 11:16 | XMS_ITS | Encounter Summary ---
Author Organization [facility] Address [address] [place] [address] Care Team Providers Care Research Coordinator Name Role Phone Harsha Chaudhary MD Primary Care Provider [phone] Encounter Details Date Type Department Care Team (Late st Contact Info) Description 08/11/2023 Orders Only [facility] [place] [address] [place] [address] [place] [address] Davide Deutsch MD [address] [place] [address] Social History Tobacco Use Types [...] Procedure Name Priority Date/Time Associated Diagnosis Comments IMMUNO CHEMISTRY Routine 08/11/2023 HEMATOLOGY Routine 08/11/2023 CHEMISTRY Routine 08/11/2023 documented in this encounter Results * IMMUNO CHEMISTRY (08/11/2023) Hep B Surface Ag Negative Negative [facility] 08/11/2023 08/16/2023 3:5 0 AM CDT Narrative [facility] - 08/16/2023 Unless otherwise specified, test(s) performed at: [facility], [address] [place] [address], [place] [address] BODY TECHNICIAN/PAINTER: Porfirio Mahoney M.D., Ph.D For any questions, please call customer service at FREQUENCY:MONTHLY Resulting Agency Comment Specimen source: Plasma Davide Deutsch MD LAB BLOOD ORDERABLES [facility] [[email or web address] Labs See order comments or contact performing lab Unknown, [place] * (ABNORMAL) [facility] (08/11/2023) BUN 65(H) 6 - 19 mg/dL [facility] Creatinine 4.86(H) 0.60 - 1.30 mg/dL [facility] BUN/Creatinine Ratio 13.4 10.0 - 20.0 [facility] Sodium 143 136 - 145 mEq/L [facility] Potassium 5.0 3.5 - 5.1 mEq/L [facility] Chloride 111(H) 96 - 108 mEq/L [facility] Bicarbonate (CO2) 23 20 - 31 mEq/L [facility] Calcium 9.0 8.7 - 10.4 mg/dL [facility] Comment: Please note change in reference range. Corrected Calcium 9.3 8.7 - 10.4 mg/dL [facility] Comment: Corrected Calcium is not equivalent to measured Ionized Calcium. Phosphorus 4.7(H) 2.6 - 4.5 mg/dL [facility] Calcium Phosphorus Product 42 0 - 54 [facility] Calcium Phosporus Product, Cor 44 0 - 54 [facility] Albumin 3.6 3.5 - 5.2 g/dL [facility] Glucose 128(H) 70 - 100 mg/dL [facility] Iron 36 30 - 160 mcg/dL [facility] UIBC 202 155 - 355 mcg/dL [facility] TIBC 238 185 - 515 mcg/dL [facility] Iron Saturation (TSat) 15(L) 20 - 55 % [facility] 08/11/2023 08/16/2023 3:4 2 AM CDT Narrative [facility]16/[facility]23 Unless otherwise specified, test(s) performed at: [facility], [address] [place] [address], [place] [address] BODY TECHNICIAN/PAINTER: Porfirio Mahoney M.D., Ph.D For any questions, please call customer service at FREQUENCY:MONTHLY Resulting Agency Comment Specimen source: Serum Davide Deutsch MD LAB BLOOD ORDERABLES Performing Organization Address [facility] de Phone Number [facility] See order comments or contact performing lab Unknown, [place] * (ABNORMAL) HEMATOLOGY (08/11/2023) Hemoglobin 8.4(L) 12.0 - 16.0 g/dL [facility] Hemoglobin x 3 25.2(L) 36.0 - 48.0 % [facility] 08/11/2023 08/16/2023 3:2 6 AM CDT Narrative [facility] - 08/16/2023 Unless otherwise specified, test(s) performed at: [facility], [address] [place] [id number] BODY TECHNICIAN/PAINTER: Porfirio Mahoney M.D., Ph.D For any questions, please call customer service at FREQUENCY:MONTHLY Resulting Agency Comment Specimen source: Blood Davide Deutsch MD LAB BLOOD ORDERABLES Performing Organization Address [facility] de Phone Number [facility] See order comments or contact performing lab Unknown, [place] documented in this encounter Visit Diagnoses Not on filedocumented in this encounter Care Teams Research Coordinator Relationship Specialty Start Date End Date Harsha Chaudhary MD [address] [place] [address] PCP - General Family Medicine 12/22/22 documented as of this encounter
[2023-11-13 11:17] VITALS: BP 171/87; PULSE 79; RESP 16; O2SAT 97
== END 2023-11-13 11:51 | disposition home or self-care (01) ==
PROVIDERS: Emergency Provider Family Medicine; PCP Family Medicine
DX: S70.01XA Contusion of right hip, initial encounter (principal); S09.90XA Unspecified injury of head, initial encounter; W01.0XXA Fall on same level from slipping, tripping and stumbling without subsequent striking against object, initial encounter
CPT/HCPCS: 70450; 73502; 73560; 99284

== ENCOUNTER 2023-11-14 17:32 | Outpatient (CLI) | payer OTHER, SELFPAY ==
--- OUTSIDE RECORDS SUMMARY | 2023-12-05 03:06 | XMS_ITS | Clinical Summary ---
Author Organization [facility] Address [place], [place] [address] Care Team Providers Care Elevator Erector Helper Name Role Phone Donnell Ridley MD Unavailable [phone] Antelmo Ward MD Unavailable [phone] Harsha Chaudhary MD Primary Care Provider Allergies Active Allergy Reactions Criticality Noted Date Comments Lisinopril Cough 04/29/2009 intolerance Medications Medication Sig Dispensed Refills Start Date End Date Status tamoxifen (NOLVADEX) 20 mg tablet Take 20 mg by mouth once daily. 03/25/2019 Active cholecalciferol (Vitamin D) 1,000 unit capsuleIndications:Vi tamin D deficiency Take 1 Capsule (1,000 units) by mouth once daily. 90 Capsule 3 08/09/2022 Active calcium with vitamin D3 (Os-Reggie 500+D) tablet Take 1 Tablet by mouth once daily with a meal. Active oxygen-air delivery systems (HOME OXYGEN)Indications:In carcerated umbilical hernia Oxygen for home use. Liters per minute: 2 L/min per nasal cannula. Frequency of use: Continuous with portability.;. Length of need: 2 Months. 1 Each 06/09/2023 Active Accu-Chek Guide Glucose MeterIndications:Cont rolled type 2 diabetes mellitus without complication, without long-term current use of insulin (HC) USE DIRECTED 1 Kit 07/06/2023 Active amLODIPine (NORVASC) 5 mg tabletIndications:HTN (hypertension) Take 2 Tablets (10 mg) by mouth once daily. 180 Tablet 1 08/02/2023 Active atorvastatin (LIPITOR) 20 mg tabletIndications:Hyp erlipidemia, unspecified hyperlipidemia type Take 1 Tablet (20 mg) by mouth at bedtime. 90 Tablet 3 08/02/2023 Active losartan (COZAAR) 50 mg tabletIndications:HTN (hypertension) Take 1 Tablet (50 mg) by mouth once daily. 90 Tablet 1 08/02/2023 Active potassium chloride (KLOR-CON M20) 20 mEq extended-release tablet (part/cryst)Indicatio ns:Hypokalemia Take 1 Tablet (20 mEq) by mouth two times daily with meals. 180 Tablet 2 08/21/2023 Active allopurinoL (ZYLOPRIM) 300 mg tabletIndications:Gou t of hip, unspecified cause, unspecified chronicity, unspecified laterality TAKE 1/2 TABLET ONE TIME DAILY 45 Tablet 1 10/18/2023 Active Active Problems Problem Noted Date Diagnosed [...] Encounters Date Type Department Care Team Description 11/16/2023 Telephone [facility] [address] [place] [address] Harsha Chaudhary MD 11/13/2023 Orders Only [facility] Scanner 1 scan: (1-Ord) [facility], XR KNEE RT 2V, 11/13/2023 11/13/2023 Orders Only [facility] Scanner 1 scan: (1-Ord) [facility], CT HEAD/BRAIN WO CON, 11/13/2023 11/13/2023 Orders Only [facility] Scanner 1 scan: (1-Ord) [facility], XR HIP RT MIN 2V, 11/13/2023 11/13/2023 Telephone [facility] [address] [place] [address] Harsha Chaudhary MD Questions (Mammogram ) 10/20/2023 Telephone [facility] [address] [place] [address] Harsha Chaudhary MD Medication Management (allopurinoL (ZYLOPRIM) 300 mg tablet) 10/18/2023 Orders Only [facility] [address] [place] [address] Harsha Chaudhary MD <No scans attached> 10/16/2023 Telephone [facility] [address] [place] [address] Harsha Chaudhary MD Refill Request (CARVEDILOL 12.5MG TAB, TORSEMIDE 20MG TAB, SEVELAMER CARB 800MG TAB) 10/13/2023 Refill [facility] [address] [place] [address] Harsha Chaudhary MD Refill Request (ALLOPURINOL 300MG TAB) from Last 3 Months Immunizations Name Administration Dates Next Due COVID-19 Vaccine Spikevax (M oderna 50mcg/0.5mL) 12YO+ [id number] Formula PF 05/03/2023 COVID-19 vaccine (Moderna 100mcg/0.5mL) [...] 4 4 Date Outcome GA Total Labor Labor//3rd Weight Sex Type Anes PTL Gloria A1 A5 Name Clin Term Term Term Term Last Filed Vital Signs Vital Sign Reading Time Taken Comments Blood Pressure 132/70 08/02/2023 1:36 PM CDT Pulse 75 08/02/2023 1:07 PM CDT Temperature 36.4 ??C (97.5 ??F) 07/06/2023 2:14 PM CS T Respiratory Rate 14 07/06/2023 2:14 PM [facility] Oxygen Saturation 99% 08/02/2023 1:07 PM CDT Inhaled Oxygen Concentration - - Weight 82.7 kg (182 lb 6.4 oz) 08/02/2023 1:07 P M CDT Height 167.6 cm (5' 6) 06/22/2023 10:56 AM [facility] Body Mass Index 29.44 06/22/2023 10:56 AM [facility] Plan of Treatment Not on file Medical Devices Implanted Type Area Cafeteria Counter Attendant Device Identifier Shelf Expiration Date Model / Serial / Lot [employer] Medical Flex-Neck Arc Peritoneal Dialysis Catheter Implanted:Qty: 1 on 06/05/2023 by Benjamin Wayne MD at [facility] N/A: Abdomen 09/30/2024 [id number] / / Description:[employer] Medical Fl ex-Neck ARC Peritoneal Dialysis Catheter Ph[employer] Mash 12x12 Implanted:Qty: 1 on 06/05/2023 by Benjamin Wayne MD at [facility] N/A: Abdomen 01/02/2025 [id number] / / [id number] Description:Phasix's Mash 12 X12 Procedures Procedure Name Priority Date/Time Associated Diagnosis Comments SCAN-RADIOLOGY REPORT 11/13/2023 12:00 AM CDT SCAN-CT INTERPRETATION 12:00 AM CDT SCAN-RADIOLOGY REPORT 11/13/2023 12:00 AM CDT from Last 3 Months Results * SCAN-RADIOLOGY REPORT (11/13/2023 12:00 AM CDT) Only the most recent of2 resultswithin the time period is included. Anatomical Region Laterality Modality Other Scanner OTHER * SCAN-CT INTERPRETATION (11/13/2023 12:00 AM CDT) Anatomical Region Laterality Modality Other Scanner OTHER from Last 3 Months Advance Directives * Full Code (Latest Code Status on File) Date Activated Date Inactivated Comments 06/06/2023 8:04 AM 06/09/2023 7:13 PM Question Answer Comments Code Status Discussion: Reviewed Preferences * Full Code Date Activated Date Inactivated Comments 06/05/2023 6:05 AM 06/06/2023 8:03 AM Question Answer Comments Code Status Discussion: Unable to Assess Preferences, Provider to review later Care Teams Elevator Erector Helper Relationship Specialty Start Date End Date Harsha Chaudhary MD [address] [place] [address] PCP - General Family Practice 07/15/20 Donnell Ridley MD [address] [place] [address] Gastroenterology 11/22/12 Antelmo Ward MD [address] [place] [address] Internal Medicine Internal Medicine 01/24/14
--- OUTSIDE RECORDS SUMMARY | 2023-12-05 03:07 | XMS_ITS | Encounter Summary ---
Author Organization [facility] Address [address] [place] [address] [facility] [address] [place] [address] Care Team Providers Care Traffic Division Commanding Officer Name Role Phone Harsha Chaudhary MD Primary Care Provider [phone] Encounter Details Date Type Department Care Team (Late st Contact Info) Description 07/10/2023 Orders Only [facility] [place] [address] [facility] [address] [place] [address] Davide Deutsch MD [address] [place] [address] Stage 5 chronic kidney disease [...] MD LAB BLOOD ORDERABLES Performing Organization Address [facility] Co de Phone Number [facility] * Hepatitis B surface antibody (07/10/2023) Hepatitis B Surface Ab <3.50 [facility] Comment:<8.5 Considered not immune to HBV infection. >=8.5 to < 11.5 Indeterminate result, unable to dertermine if antibody is present at levels consistent with immunity. >= 11.5 Considered immune to HBV infection. Blood (Blood, Venous) 07/10/2023 Davide Deutsch MD LAB BLOOD ORDERABLES Performing Organization Address [facility] Co de Phone Number [facility] * (ABNORMAL) PTH, intact (07/10/2023) Parathyroid Hormone, Intact 166(H) pg/mL [facility] Blood (Blood, Venous) 07/10/2023 Davide Deutsch MD LAB BLOOD ORDERABLES Performing Organization Address [facility] Co de Phone Number [facility] * (ABNORMAL) Hemoglobin (07/10/2023) Hemoglobin 8.9(L) g/dL [facility] MCV 96.0 [facility] Blood (Blood, Venous) 07/10/2023 Davide Deutsch MD LAB BLOOD ORDERABLES Performing Organization Address [facility] Co de Phone Number [facility] * [...] (HCC) documented in this encounter Care Teams Traffic Division Commanding Officer Relationship Specialty Start Date End Date Harsha Chaudhary MD [address] [place] [address] PCP - General Family Medicine 12/22/22 documented as of this encounter
--- OUTSIDE RECORDS SUMMARY | 2023-12-05 03:07 | XMS_ITS | Encounter Summary ---
Author Organization [facility] Address [address] [place] [address] Care Team Providers Care U.[place]. Commissioner Name Role Phone Harsha Chaudhary MD Primary Care Provider [phone] Encounter Details Date Type Department Care Team (Late st Contact Info) Description 09/18/2023 Treatment [facility] [place] [address] [place] [address] Davide Deutsch MD [address] [place] [address] Social History Tobacco Use Types [...] Name: Angelina Gasca : 1945 Chart #: [id number] Sex: F This patient was personally seen for a complete visit as part of routine monthly dialysis care. A review of the dialysis treatment, blood pressure, estimated dry weight, and recent lab values was made. These were discussed with the patient and staff as necessary. FASHION PHOTOGRAPHER: Davide Deutsch MD LOCATION: [phone] SCHEDULE: No Routine Schedule Subjective 5/13/24: Her [...] on filedocumented in this encounter Care Teams U.[place]. Commissioner Relationship Specialty Start Date End Date Harsha Chaudhary MD [address] [place] [address] PCP - General Family Medicine 12/22/22 documented as of this encounter
--- OUTSIDE RECORDS SUMMARY | 2023-12-05 03:07 | XMS_ITS | Encounter Summary ---
Author Organization [facility] Address [address] [place] [address] Care Team Providers Care Reticle Printer Name Role Phone Harsha Chaudhary MD Primary Care Provider [phone] Encounter Details Date Type Department Care Team (Late st Contact Info) Description 11/01/2023 Treatment [facility] [place] [address] [place] [address] Davide Deutsch MD [address] [facility] [address] Social History Tobacco Use Types [...] Name: Angelina Gasca : 1945 Chart #: [id number] Sex: F This patient was personally seen for a complete visit as part of routine monthly dialysis care. A review of the dialysis treatment, blood pressure, estimated dry weight, and recent lab values was made. These were discussed with the patient and staff as necessary. GOLF TEACHER: Davide Deutsch MD LOCATION: [phone] SCHEDULE: No Routine Schedule Subjective 6/26/24: She [...] tablet by mouth every morning RenaPlex-D (vit b,a-tg-tzth-selen-vit d3-e) 800 mcg-12.5 mg-2,000 unit tablet Take [...] supplement. Her appetite has now improved Davide Deutsch MD [ Signed And locked electronically On 11/01/2023 at 01:22:54 PM ] Transcribed: Davide Deutsch ( 11/01/2023 ) documented in this encounter Plan of Treatment Not on file documented as of this encounter Visit Diagnoses Not on filedocumented in this encounter Care Teams Reticle Printer Relationship Specialty Start Date End Date Harsha Chaudhary MD [address] [place] [address] PCP - General Family Medicine 12/22/22 documented as of this encounter
--- OUTSIDE RECORDS SUMMARY | 2023-12-05 03:07 | XMS_ITS | Clinical Summary ---
Author Organization [facility] [place] Address [address] [place] [address] Phone Care Team Providers Care Lawn Mower Mechanic Name Role Phone Harsha Chaudhary MD Primary Care Provider [phone] Allergies Active Allergy Reactions Criticality Noted Date [...] Team Description 11/01/2023 Treatment [facility] [address] [place] [address] Davide Deutsch MD 10/18/2023 Orders Only [facility] [address] [place] [address] Davide Deutsch MD 09/18/2023 Treatment [facility] [address] [place] [address], [place] [address] Davide Deutsch MD 09/12/2023 Orders Only [facility] [address] [place] [address] Davide Deutsch MD from Last 3 Months Immunizations Name Administration Dates Next Due H1N1 All Forms 04/29/2009 H1N1 Inj 04/29/2009 Influenza (IM) Preservative Free 02/04/2010,04/08 Influenza Split High Dose Pr eservative Free IM 01/25/2016,02/19/2015,01/24/2014 Influenza Vaccine, Quadrival ent, Adjuvanted 03/10/2023,02/08/2021 Influenza, Trivalent, Adjuvanted 01/22/2019,02/05,01/25/2017 Influenza, Unspecified 02/07/2013,2009,04/29/2009,04/08 Moderna SARS-COV-2 07/16/2020 Moderna Sars-cov-2 (Covid-19 ) Vaccine, Mrna, Ki Protein 05/03/2023 PPD Test 03/22/2013 Pfizer SARS-CoV-2 Bivalent 3 0 mcg/0.3 mL 08/04/2022 [...] Comments Blood Pressure 160/70 07/13/2023 10:24 AM FUNERAL HOME MANAGER Pulse 59 07/13/2023 10:24 AM FUNERAL HOME MANAGER Temperature - - Respiratory Rate - - Oxygen Saturation 98% 07/13/2023 10:24 AM FUNERAL HOME MANAGER Inhaled Oxygen Concentration - - Weight 83.5 kg (184 lb) 07/13/2023 10:24 AM FUNERAL HOME MANAGER Height 167.6 cm (5' 6) 07/13/2023 10:24 AM FUNERAL HOME MANAGER Body Mass Index 29.7 07/13/2023 10:24 AM FUNERAL HOME MANAGER Plan of Treatment Health Maintenance Due Date [...] INFORMATION Routine 09/12/2023 PATIENT INFORMATION Routine 09/12/2023 from Last 3 Months Results * (ABNORMAL) SPECIAL CHEMISTRY (10/18/2023) Only the most recent of2 resultswithin the time period is included. Vitamin D, 25-OH, Total 25.6(L) 30.0 - 100.0 ng/mL [email or web address] Comment: Please Note: ??Effective May 16, 2021, the methodology for this test has changed to the SIEMENS ATELLICA method 10/18/2023 10/19/2023 4:0 0 PM CDT Narrative Resulting Agency Comment Specimen source: Serum Davide Deutsch MD LAB BLOOD BANK TEST ORDERABLES [email or web address] See order comments or contact performing [...] Urine Davide Deutsch MD LAB [facility]INE [email or web address] See order comments or contact performing lab [...] results. Creatinine, PDF Timed Uncor 2.4 mg/dL [email or web address] Comment: A reference range for this assay has not been established for body fluids. If blood results are available for this analyte, results may be interpreted in comparison to those results. Creatinine, PDF Timed Cor 2.2 mg/dL [email or web address] Comment: Creatinine values have been corrected for glucose interference. [facility] glucose correction factor for creatinine is 0.0002. Glucose, PDF Timed 808 mg/dL [email or web address] Comment: A reference range for this [...] FLUIDS AND STOOLS ORDERABLES Performing Organization Address City/[facility]/ZIP Co de Phone Number [facility] See order comments or contact performing lab Unknown, [place] * PD ADEQUACY (10/18/2023) Only the most recent of4 resultswithin the time period is included. Kt/V, Residual 0.32 [facility] Creat Clear, Urine Nor Wkly 49 L/wk [facility] 10/18/2023 10/19/2023 2:5 9 PM CDT Narrative [facility] - 10/20/2023 Unless otherwise specified, test(s) performed at: [facility], [address] [place] [address], [place] [address] DIRECTOR INTERNATIONAL: Porfirio Mahoney M.D., Ph.D For any questions, please call customer service at FREQUENCY:OTHER Resulting Agency Comment Specimen source: Urine Davide Deutsch MD LAB BODY FLUIDS AND STOOLS ORDERABLES [email or web address] See order comments or contact performing lab Unknown, [place] * IMMUNO CHEMISTRY (10/18/2023) Only the most recent of2 resultswithin the time period is included. Pathologist [facility] Hep B Surface Ag Negative Negative [facility] 10/18/2023 10/19/2023 1:3 8 PM CDT Narrative Resulting Agency Comment Specimen source: Plasma Davide Deutsch MD LAB BLOOD ORDERABLES Performing Organization Address City/[facility]/ZIP Co de Phone Number [facility] See order comments or contact performing lab Unknown, [place] * PATIENT INFORMATION (10/18/2023) Only the most recent of6 resultswithin the time period is included. Pathologist [facility] Urea Volume Distribution ([place]) 37.7 L [facility] 10/18/2023 10/19/2023 1:3 8 PM CDT Narrative [facility] - 10/20/2023 Unless otherwise specified, test(s) performed at: [facility], [address] [place] [address], [place] [address] DIRECTOR INTERNATIONAL: Porfirio Mahoney M.D., Ph.D For any questions, please call customer service at FREQUENCY:OTHER Resulting Agency Comment Specimen source: PD Fluid Davide Deutsch MD LAB BLOOD ORDERABLES Performing Organization Address [facility] Co de Phone Number [facility] See order comments or contact performing lab Unknown, [place] * (ABNORMAL) HEMATOLOGY (10/18/2023) Only the most recent of2 resultswithin the time period is included. Pathologist [facility] WBC 6.36 4.80 - 10.80 1000/mcL [facility] [...] 10/18/2023 10/19/2023 1:2 3 PM CDT Narrative [facility] - 10/19/2023 Unless otherwise specified, test(s) performed at: [facility], [address] [place] [address], [place] [address] DIRECTOR INTERNATIONAL: Porfirio Mahoney M.D., Ph.D For any questions, please call customer service at FREQUENCY:MONTHLY Resulting Agency Comment Specimen source: Blood Davide Deutsch MD LAB BLOOD ORDERABLES [facility] See order comments or contact performing lab [...] 10/18/2023 10/19/2023 4:0 0 PM CDT Narrative [facility] - 10/19/2023 Unless otherwise specified, test(s) performed at: [facility], [address] [place] [address], [place] [address] DIRECTOR INTERNATIONAL: Porfirio Mahoney M.D., Ph.D For any questions, please call customer service at FREQUENCY:MONTHLY Resulting Agency Comment Specimen source: Serum Davide Deutsch MD LAB BLOOD ORDERABLES Performing Organization Address [facility] de Phone Number [email or web address] See order comments or contact performing lab Unknown, [place] * P.E.T. INTERPRETATION (09/12/2023) Only the most recent of3 resultswithin the time period is included. D/P Ratio PET 2 Hr 0.36 [facility] D/D0 Ratio PET 2 Hr 0.64 [facility] 09/12/2023 09/14/2023 6:0 0 PM CDT Narrative [facility] - 09/14/2023 Unless otherwise specified, test(s) performed at: [facility], [address] [place] [address] DIRECTOR INTERNATIONAL: Porfirio Mahoney M.D., Ph.D For any questions, please call customer service at FREQUENCY:MONTHLY Resulting Agency Comment Specimen source: PD Fluid Davide Deutsch MD LAB BLOOD ORDERABLES Performing Organization Address City/[facility]/ZIP Co de Phone Number [email or web address] See order comments or contact performing lab Unknown, [place] * P.E.T. GLUCOSE, PDF (09/12/2023) Only the most recent of3 resultswithin the time period is included. Glucose, PDF 2 Hr 1,322 mg/dL [email or web address] Comment: A reference range for this assay has not been established for body fluids. If blood results are available for this analyte, results may be interpreted in comparison to those results. 09/12/2023 09/14/2023 6:0 0 PM CDT Narrative Resulting Agency Comment Specimen source: PD Fluid Davide Deutsch MD LAB BLOOD ORDERABLES Performing Organization Address [facility] de Phone Number [email or web address] See order comments or contact performing lab Unknown, [place] * P.E.T. CREATININE, PDF (09/12/2023) Only the most recent of3 resultswithin the time period is included. Creatinine, PDF 2 Hr Cor 2.3 mg/dL [email or web address] Creatinine, PDF 2 Hr Uncor 2.6 mg/dL [email or web address] Comment: A reference range for this assay has not been established for body fluids. If blood results are available for this analyte, results may be interpreted in comparison to those results. 09/12/2023 09/14/2023 6:0 0 PM CDT Narrative Resulting Agency Comment Specimen source: PD Fluid Davide Deutsch MD LAB BLOOD ORDERABLES Performing Organization Address [facility] de Phone Number [email or web address] See order comments or contact performing lab Unknown, [place] * TRACE ELEMENTS (09/12/2023) Aluminum <5 0 - 10 mcg/L [facility] Comment: This test was developed and its performance characteristics determined by [facility]. It has not been cleared or approved by the FDA. The laboratory is regulated under CLIA as qualified to perform high complexity testing. This test is used for clinical purposes. It should not be regarded as investigational or for research. 09/12/2023 09/14/2023 8:5 3 AM CDT Narrative [facility] - 09/14/2023 Unless otherwise specified, test(s) performed at: [facility], [address] [place] [address], [place] [address] DIRECTOR INTERNATIONAL: Porfirio Mahoney M.D., Ph.D For any questions, please call customer service at FREQUENCY:MONTHLY Resulting Agency Comment Specimen source: Serum Davide Deutsch MD LAB BLOOD ORDERABLES [facility] See order comments or contact performing lab Unknown, [place] from Last 3 Months Care Teams Lawn Mower Mechanic Relationship Specialty Start Date End Date Harsha Chaudhary MD [address] [place] [address] PCP - General Family Medicine 12/22/22
--- OUTSIDE RECORDS SUMMARY | 2023-12-05 03:07 | XMS_ITS | Encounter Summary ---
Author Organization [facility] [place] Address [address] [facility] [address] [facility] [address] [place] [address] Care Team Providers Care District Claims Manager Name Role Phone Harsha Chaudhary MD Primary Care Provider [phone] Encounter Details Date Type Department Care Team (Late st Contact Info) Description 09/12/2023 Orders Only [facility] [place] [address] [place] [address] Davide Deutsch MD [address] [address] Social History Tobacco Use Types [...] MD LAB BLOOD ORDERABLES Performing Organization Address City/[facility]/ZIP Co de Phone Number [facility] See order comments or contact performing [...] MD LAB BLOOD ORDERABLES Performing Organization Address [facility] de Phone Number [facility] See order comments or contact performing lab Unknown, [place] * P.E.T. INTERPRETATION (09/12/2023) D/P Ratio PET 2 Hr 0.36 [facility] D/D0 Ratio PET 2 Hr 0.64 [facility] 09/12/2023 09/14/2023 6:0 0 PM CDT Narrative [facility] - 09/14/2023 Unless otherwise specified, test(s) performed at: [facility], [address] [place] [address], [place] [address] CLINICAL INTERVIEWER: Porfirio Mahoney M.D., Ph.D For any questions, please call customer service at FREQUENCY:MONTHLY Resulting Agency Comment Specimen source: PD Fluid Davide Deutsch MD LAB BLOOD ORDERABLES Performing Organization Address City/[facility] Co de Phone Number [facility] See order comments or contact performing [...] values have been corrected for glucose interference. [facility] glucose correction factor for creatinine is [...] FLUIDS AND STOOLS ORDERABLES Performing Organization Address City/[facility]/ZIP Co de Phone Number [facility] See order comments or contact performing lab Unknown, [place] * PATIENT INFORMATION (09/12/2023) Urea Volume Distribution ([place]) 37.2 L [facility] 09/12/2023 09/14/2023 6:2 1 PM CDT Narrative [facility] - 09/14/2023 Unless otherwise specified, test(s) performed at: [facility], [address] [place] [address], [place] [address] CLINICAL INTERVIEWER: Porfirio Mahoney M.D., Ph.D For any questions, please call customer service at FREQUENCY:MONTHLY Resulting Agency Comment Specimen source: PD Fluid Davide Deutsch MD LAB BLOOD ORDERABLES Performing Organization Address [facility]/ZIP Co de Phone Number [facility] [...] 09/14/2023 Unless otherwise specified, test(s) performed at: [facility], [address] [place] [address] CLINICAL INTERVIEWER: Porfirio Mahoney M.D., Ph.D For any questions, please call customer service at FREQUENCY:MONTHLY Resulting Agency Comment Specimen source: Blood Davide Deutsch MD LAB BLOOD ORDERABLES Performing Organization Address [facility] de Phone Number [facility] See order comments or contact performing lab Unknown, [place] * IMMUNO CHEMISTRY (09/12/2023) Pathologist [facility] Hep B Surface Ag Negative Negative [facility] 09/12/2023 09/14/2023 6:1 4 PM CDT Narrative Resulting Agency Comment Specimen source: Plasma Davide Deutsch MD LAB BLOOD ORDERABLES Performing Organization Address [facility] de Phone Number [facility] See order comments or contact performing lab Unknown, [place] * (ABNORMAL) [facility] (09/12/2023) Pathologist [facility] PTH 592(H) 16 - 80 pg/mL [facility] 09/12/2023 09/14/2023 6:[address] [facility] - 09/14/2023 Unless otherwise specified, test(s) performed at: [facility], [address] [place] [address], [place] [address] CLINICAL INTERVIEWER: Porfirio Mahoney M.D., Ph.D For any questions, please call customer service at FREQUENCY:MONTHLY Resulting Agency Comment Specimen source: Plasma Davide Deutsch MD LAB BLOOD ORDERABLES Performing Organization Address [facility] Co de Phone Number [facility] See order comments or contact performing [...] MD LAB BLOOD ORDERABLES Performing Organization Address [facility] Co de Phone Number [facility] See order comments or contact performing [...] MD LAB BLOOD ORDERABLES Performing Organization Address [facility] de Phone Number [facility] See order comments or contact performing lab Unknown, [place] * P.E.T. INTERPRETATION (09/12/2023) D/P Ratio PET 0 Hr 0.00 [facility] D/D0 Ratio PET 0 Hr 1.00 [facility] 09/12/2023 09/14/2023 4:2 9 PM CDT Narrative [facility] - 09/14/2023 Unless otherwise specified, test(s) performed at: [facility], [address] [place] [address], [place] [address] CLINICAL INTERVIEWER: Porfirio Mahoney M.D., Ph.D For any questions, please call customer service at FREQUENCY:MONTHLY Resulting Agency Comment Specimen source: PD Fluid Davide Deutsch MD LAB BLOOD ORDERABLES Performing Organization Address [facility] Co de Phone Number [facility] See order comments or contact performing lab Unknown, [place] * TRACE ELEMENTS (09/12/2023) Aluminum <5 0 - 10 mcg/L [facility] Comment: This test was developed and its performance characteristics determined by [facility]. It has not been cleared or approved by the FDA. The laboratory is regulated under CLIA as qualified to perform high complexity testing. This test is used for clinical purposes. It should not be regarded as investigational or for research. 09/12/2023 09/14/2023 8:5 3 AM CDT Narrative [facility] - 09/14/2023 Unless otherwise specified, test(s) performed at: [facility], [address] [place] [address], [place] [address] CLINICAL INTERVIEWER: Porfirio Mahoney M.D., Ph.D For any questions, please call customer service at FREQUENCY:MONTHLY Resulting Agency Comment Specimen source: Serum Davide Deutsch MD LAB BLOOD ORDERABLES Performing Organization Address [facility] de Phone Number [facility] See order comments or contact performing [...] MD LAB BLOOD ORDERABLES Performing Organization Address [facility] Co de Phone Number [facility] IT [facility] IT [facility] See order comments or contact performing lab Unknown, [place] * P.E.T. GLUCOSE, PDF (09/12/2023) Glucose, PDF 4 Hr 776 mg/dL [facility] Comment: A reference range for this assay has not been established for body fluids. If blood results are available for this analyte, results may be interpreted in comparison to those results. 09/12/2023 09/14/2023 3:1 0 PM CDT Narrative Resulting Agency Comment Specimen source: PD Fluid Davide Deutsch MD LAB BLOOD ORDERABLES [facility] See order [...] ?? 0.82-1.03 ?? 0.43-0.24 ?? 0.25-0.12 ?? 5423-8649 Average High ? 0.49-0.62 ?? 0.66-0.81 ?? 0.54-0.44 ?? 0.37-0.26 ?? 5827-0190 Average ?0.48 ?0.65 ?0.55 ?0.38 ?2367 Average Low ?0.34-0.47 ?? 0.50-0.64 ?? 0.66-0.56 ?? 0.49-0.39 ?? 7418-7739 Low ?0.23-0.33 ?? 0.34-0.49 ?? 0.78-0.67 ?? 0.61-0.50 ?? 4978-7820 *Chilo MiguelJ, Erica KD, Linda R, Paul [...] 09/12/2023 09/14/2023 3:[address] [facility] - 09/14/2023 Unless otherwise specified, test(s) performed at: [facility], [address] [place] [address], [place] [address] CLINICAL INTERVIEWER: Porfirio Mahoney M.D., Ph.D For any questions, please call customer service at FREQUENCY:MONTHLY Resulting Agency Comment Specimen source: PD Fluid Davide Deutsch MD LAB BLOOD ORDERABLES [facility] See order comments or contact performing [...] MD LAB URINE ORDERABLES Performing Organization Address City/[facility]/ZIP Co de Phone Number [facility] See order comments or contact performing lab Unknown, [place] * PD ADEQUACY (09/12/2023) Creat Clear, Urine Nor Wkly 27 L/wk [facility] Kt/V, Residual 0.16 [facility] 09/12/2023 09/14/2023 3:1 7 PM CDT Narrative [facility] - 09/14/2023 Unless otherwise specified, test(s) performed at: [facility], [address] [place] [address], [place] [address] CLINICAL INTERVIEWER: Porfirio Mahoney M.D., Ph.D For any questions, please call customer service at FREQUENCY:MONTHLY Resulting Agency Comment Specimen source: Urine Davide Deutsch MD LAB BODY FLUIDS AND STOOLS ORDERABLES Performing Organization Address [facility]/ZIP Co de Phone Number [facility] See order comments or contact performing [...] LAB BLOOD BANK TEST ORDERABLES [facility] See order comments or contact performing [...] Deutsch MD LAB BLOOD ORDERABLES [facility] See order comments or contact performing lab Unknown, [place] * PATIENT INFORMATION (09/12/2023) Patient BSA 1.89 sq. M. [facility] Comment: Normalized values are calculated using the patient's actual BSA and normalized to the average BSA of 1.73m2. 09/12/2023 09/14/2023 3:[address] [facility] - 09/14/2023 Unless otherwise specified, test(s) performed at: [facility], [address] [place] [address], [place] [address] CLINICAL INTERVIEWER: Porfirio Mahoney M.D., Ph.D For any questions, please call customer service at FREQUENCY:MONTHLY Resulting Agency Comment Specimen source: PD Fluid Davide Deutsch MD LAB BLOOD ORDERABLES Performing Organization Address [facility] Co de Phone Number [facility] See order [...] Ur 24.0 [facility] 09/12/2023 09/12/[address] [facility] - 09/14/2023 Unless otherwise specified, test(s) performed at: [facility], [address] [place] [address], [place] [address] CLINICAL INTERVIEWER: Porfirio Mahoney M.D., Ph.D For any questions, please call customer service at FREQUENCY:MONTHLY Resulting Agency Comment Specimen source: PD Fluid Davide Deutsch MD LAB BLOOD ORDERABLES Performing Organization Address [facility] Co de Phone Number [facility] See order comments or contact performing lab Unknown, [place] documented in this encounter Visit Diagnoses Not on filedocumented in this encounter Care Teams District Claims Manager Relationship Specialty Start Date End Date Harsha Chaudhary MD [address] [place] [address] PCP - General Family Medicine 12/22/22 documented as of this encounter
--- OUTSIDE RECORDS SUMMARY | 2023-12-05 03:07 | XMS_ITS | Encounter Summary ---
Author Organization [facility] [place] [place] Address [address] [facility] [address] [place] [address] Care Team Providers Care Community Health Director Name Role Phone Harsha Chaudhary MD Primary Care Provider [phone] Encounter Details Date Type Department Care Team (Late st Contact Info) Description 06/18/2023 Orders Only [facility] [place] [address] [facility] [address] [place] [address] Davide Deutsch MD [address] [place] [address] Stage 5 chronic kidney disease [...] (HCC) documented in this encounter Care Teams Community Health Director Relationship Specialty Start Date End Date Harsha Chaudhary MD [address] [place] [address] PCP - General Family Medicine 12/22/22 documented as of this encounter
--- OUTSIDE RECORDS SUMMARY | 2023-12-05 03:07 | XMS_ITS | Encounter Summary ---
Author Organization [facility] [place] [place] Address [address] [place] [address] Care Team Providers Care Car Pincher Name Role Phone Harsha Chaudhary MD Primary Care Provider [phone] Encounter Details Date Type Department Care Team (Late st Contact Info) Description 10/18/2023 Orders Only [facility] [address] [place] [address] Davide Deutsch MD [address] [address] Social History Tobacco Use Types [...] 10/20/2023 Unless otherwise specified, test(s) performed at: [facility], [address] [place] [address], [place] [address] PSYCHOMETRIST: Porfirio Mahoney M.D., Ph.D For any questions, please call customer service at FREQUENCY:OTHER Resulting Agency Comment Specimen source: Urine Davide Deutsch MD LAB BODY FLUIDS AND STOOLS ORDERABLES [facility] See order comments [...] FLUIDS AND STOOLS ORDERABLES Performing Organization Address [facility] de Phone Number [facility] See order comments or contact performing lab Unknown, [place] * PATIENT INFORMATION (10/18/2023) Pathologist [facility] [place] Urea Volume Distribution ([place]) 37.7 L [facility] 10/18/2023 10/19/2023 1:3 8 PM CDT Narrative [facility] - 10/20/2023 Unless otherwise specified, test(s) performed at: [facility], [address] [place] [address], [place] [address] PSYCHOMETRIST: Porfirio Mhaoney M.D., Ph.D For any questions, please call customer service at FREQUENCY:OTHER Resulting Agency Comment Specimen source: PD Fluid Davide Deutsch MD LAB BLOOD ORDERABLES Performing Organization Address [facility] de Phone Number [facility] See order comments or contact performing lab Unknown, [place] * PATIENT INFORMATION (10/18/2023) [facility] Patient BSA 1.92 sq. M. [facility] Comment: Normalized values are calculated using the patient's actual BSA and normalized to the average BSA of 1.73m2. 10/18/2023 10/19/2023 4:0 0 PM CDT Narrative [facility] - 10/20/2023 Unless otherwise specified, test(s) performed at: [facility], [address] [place] [address], [place] [address] PSYCHOMETRIST: Porfirio Mahoney M.D., Ph.D For any questions, please call customer service at FREQUENCY:OTHER Resulting Agency Comment Specimen source: PD Fluid Davide Deutsch MD LAB BLOOD ORDERABLES Performing Organization Address [facility] de Phone Number [facility] See order comments or contact performing lab Unknown, [place] * PATIENT INFORMATION (10/18/2023) Pathologist [facility] [place] Patient Weight 82.0 [facility] Patient Height 168.0 [facility] Drain volume, PDF 10,565 [facility] Collection Time, PDF 24.0 [facility] Urine Volume 350 [facility] Collection Interval, Ur 24.0 [facility] 10/18/2023 10/18/2023 Narrative [facility] - 10/20/2023 Unless otherwise specified, test(s) performed at: [facility], [address] [place] [address], [place] [address] PSYCHOMETRIST: Porfirio Mahoney M.D., Ph.D For any questions, please call customer service at FREQUENCY:OTHER Resulting Agency Comment Specimen source: PD Fluid Davide Deutsch MD LAB BLOOD ORDERABLES Performing Organization Address City/[facility]/ZIP Co de Phone Number [facility] [employer] [facility] See order comments or contact performing [...] Urine Davide Deutsch MD LAB URINE ORDERABLES [facility] See order comments or contact performing lab Unknown, [place] * (ABNORMAL) SPECIAL CHEMISTRY (10/18/2023) Pathologist [facility] [place] Vitamin D, 25-OH, Total 25.6(L) 30.0 - [...] [place] * (ABNORMAL) [facility] Chemistry (10/18/2023) Pathologist [facility] BUN 22(H) 6 - 19 mg/dL [facility] [...] 10/18/2023 10/19/2023 4:0 0 PM CDT Narrative [facility] - 10/19/2023 Unless otherwise specified, test(s) performed at: [facility], [address] [place] [address], [place] [address] PSYCHOMETRIST: Porfirio Mahoney M.D., Ph.D For any questions, please call customer service at FREQUENCY:MONTHLY Resulting Agency Comment Specimen source: Serum Davide Deutsch MD LAB BLOOD ORDERABLES [facility] [employer] [facility] See order comments or contact performing [...] 10/18/2023 10/19/2023 1:2 3 PM CDT Narrative [facility] - 10/19/2023 Unless otherwise specified, test(s) performed at: [facility], [address] [place] [address], [place] [address] PSYCHOMETRIST: Porfirio Mahoney M.D., Ph.D For any questions, please call customer service at FREQUENCY:MONTHLY Resulting Agency Comment Specimen source: Blood Davide Deutsch MD LAB BLOOD ORDERABLES [facility] [employer] [facility] See order comments or contact performing lab Unknown, [place] * IMMUNO CHEMISTRY (10/18/2023) Pathologist [facility] Hep B Surface Ag Negative Negative [facility] 10/18/2023 10/19/2023 1:3 8 PM CDT Narrative Resulting Agency Comment Specimen source: Plasma Davide Deutsch MD LAB BLOOD ORDERABLES Performing Organization Address [facility] Co de Phone Number [facility] See order comments or contact performing lab Unknown, [place] * [facility] Chemistry (10/18/2023) Pathologist [facility] [place] PTH 65 16 - 80 pg/mL [facility] 10/18/2023 10/19/2023 1:3 8 PM CDT Narrative [facility] - 10/19/2023 Unless otherwise specified, test(s) performed at: [facility], [address] [place] [address], [place] [address] PSYCHOMETRIST: Porfirio Mahoney M.D., Ph.D For any questions, please call customer service at FREQUENCY:MONTHLY Resulting Agency Comment Specimen source: Plasma Davide Deutsch MD LAB BLOOD ORDERABLES Performing Organization Address [facility] de Phone Number [facility] See order comments or contact performing lab Unknown, [place] * PDF CHEMISTRY (10/18/2023) [facility] Urea Nitrogen, PDF Timed 17 mg/dL [facility] [...] results. Creatinine, PDF Timed Cor 2.2 mg/dL [facility] Comment: Creatinine values have been corrected for glucose interference. [facility] glucose correction factor for creatinine is 0.0002. Glucose, PDF Timed 808 mg/dL [facility] Comment: A reference range for this [...] on filedocumented in this encounter Care Teams Car Pincher Relationship Specialty Start Date End Date Harsha Chaudhary MD [address] [place] [id number] PCP - General Family Medicine 12/22/22 documented as of this encounter
== END 2023-11-14 17:33 | disposition home or self-care (01) ==
LOC: AMB 12-05 03:04
PROVIDERS: PCP Family Medicine; Visit Provider Emergency Medicine
DX: I46.9 Cardiac arrest, cause unspecified (principal)
CPT/HCPCS: A0429